=== PATIENT | male | born 1935 | race Caucasian/White ===

== ENCOUNTER 2017-07-05 15:48 | Observation (INO) | payer MEDICARE, OTHER ==
[2017-07-05] MEDS ORDERED: Ondansetron 4 MG/2 ML SDV IVPUSH ONE (15:59)
[2017-07-05] MEDS ORDERED: HYDROmorphone 1 MG/ML Syringe IVPUSH ONE ×2 (16:00→16:46)
[2017-07-05] MEDS ORDERED: Sodium Chloride 0.9% 1,000 ML IV SCH (16:00)
[2017-07-05] MEDS ORDERED: ceFAZolin 1 GM in Sodium Chloride 0.9% 50 ML IV ONE (16:02)
[2017-07-05] MEDS ORDERED: Diphtheria,Pertussis(Acell),Tetanus Vaccine 0.5 ML SDV IM ONE (16:09)
--- NOTE | 2017-07-05 17:08 | EDM.PDOC ---
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 He ambutated the rt 5th and 4th finger at the proximal PP joint. He also was having pain in his rt wrist and rt elebow. he has a triangular fracture of the rt ulna just above the wrist. Onset: Today Duration: Hour(s): Location: Reports: Upper Extremity, Right Associated Symptoms: Reports: No Other Symptoms Right Hand Pain Score (Numeric/FACES): 6 - Related Data Allergies Allergy/AdvReac Type Severity Reaction Status Date / Time Penicillins Allergy Rash Verified 07/05/17 16:21 Home Meds: Home Meds Amylase/Lipase/Protease [Lacey CLEMENTS 12,000 Units] 3 cap PO TIDAC 09/17/13 [History ] Famciclovir 500 mg PO Q7D 09/17/13 [History] Levothyroxine Sodium [Levoxyl] 112 mcg PO DAILY 09/17/13 [History] Tamsulosin HCl [Flomax] 0.4 mg PO DAILY 09/17/13 [History] *Vitamin E 30 units PO ASDIRECTED 07/05/17 [History] Fludrocortisone [Florinef] 1 tab PO DAILY 07/05/17 [History] Loperamide [Imodium] 2 tab PO DAILY 07/05/17 [History] diphenhydrAMINE HCl [Benadryl Allergy] 1 tab PO DAILY 07/05/17 [History] metFORMIN [Glucophage] 1 tab PO BID 07/05/17 [History] Past Medical History Gastrointestinal History: Reports: Pancreatitis Oncologic (Cancer) History: Reports: Prostate - Past Surgical History GI Surgical History: Reports: Other (See Below) Social & Family History - Family History Family Medical History: Noncontributory - Tobacco Use Smoking Status *Q: Never Smoker Years of Tobacco use: 25 Used Tobacco, but Quit: Yes Month Tobacco Last Used: 09/1981 Second Hand Smoke Exposure: No - Alcohol Use Days Per Week of Alcohol Use: 0 - Recreational Drug Use Recreational Drug Use: No Review of Systems - Review of Systems Review Of Systems: See Below Constitutional: Reports: No Symptoms Eyes: Reports: No Symptoms Ears: Reports: No Symptoms Nose: Reports: No Symptoms Mouth/Throat: Reports: No Symptoms Respiratory: Reports: No Symptoms Cardiovascular: Reports: No Symptoms GI/Abdominal: Reports: No Symptoms Musculoskeletal: Reports: Other ( Pain in the rt hand and wrist. He got it caught in the wood splitter. ) Skin: Reports: No Symptoms Neurological: Reports: No Symptoms Psychiatric: Reports: No Symptoms ED EXAM, GENERAL - Physical Exam Exam: See Below Free Text/Narrative:: pt is a alert pt who is very uncomfortable . he caught his rt hand in a woodsplitter. He has amputated his 5th and 4th fingers. he has a fracture of the 4th and 5th metacarpals, he has a fracture of the ulns. Exam Limited By: No Limitations General Appearance: Alert, Anxious, Severe Distress Ears: Normal TMs Nose: Normal Inspection Throat/Mouth: Normal Inspection Head: Atraumatic Neck: Normal Inspection Respiratory/Chest: No Respiratory Distress GI/Abdominal: Soft Rectal (Males) Exam: Deferred Back Exam: Normal Inspection Extremities: Other ( Pt has a amputation of the rt 4th and 5th fingers at the proximal pp joint. he has a fracture of the rt ulna with out displacement. He has a fracture of the distal metacarpals--4th and 5th. ) Neurological: Alert, Oriented Course - Vital Signs Last Recorded V/S: Last Vital Signs Temp 35.4 C 07/05/17 16:00 Pulse 65 07/05/17 17:18 Resp 10 L 07/05/17 17:18 BP 149/86 H 07/05/17 17:18 Pulse Ox 92 L 07/05/17 17:18 - Orders/Labs/Meds Orders: Active Orders 24 hr Category Date Time Status Vaccines to be Administered [RC] PER UNIT ROUTINE Care 07/05/17 16:10 Active Chest 1V Frontal [CR] Stat Exams 07/05/17 17:56 Ordered Elbow Min 3V Rt [CR] Stat Exams 07/05/17 17:04 Taken Hand Comp Min 3V Rt [CR] Stat Exams 07/05/17 16:04 Taken Wrist Comp Min 3V Rt [CR] Stat Exams 07/05/17 16:05 Taken Sodium Chloride 0.9% [Normal Saline] 1,000 ml Med 07/05/17 16:00 Active IV ASDIRECTED Medication Orders Sodium Chloride (Normal Saline) 1,000 mls @ 500 mls/hr IV ASDIRECTED CAMERON Last Admin: 07/05/17 16:12 Dose: 500 mls/hr Labs: Laboratory Tests 07/05/17 07/05/17 07/05/17 Range/Units 16:04 16:04 16:04 WBC 9.7 (4.5-11.0) K/uL RBC 4.15 L (4.30-5.90) M/uL Hgb 12.3 (12.0-15.0) g/dL Hct 37.0 L (40.0-54.0) % MCV 89 (80-98) fL MCH 30 (27-31) pg MCHC 33 (32-36) % Plt Count 350 (150-400) K/uL PT 10.7 (9.5-12.0) sec INR 1.00 (0.80-1.20) APTT 25.1 L (27.0-36.0) sec Sodium 140 (140-148) mmol/L Potassium 3.6 (3.6-5.2) mmol/L Chloride 104 (100-108) mmol/L Carbon Dioxide 27 (21-32) mmol/L Anion Gap 8.9 (5.0-14.0) mmol/L BUN 10 (7-18) mg/dL Creatinine 1.0 (0.8-1.3) mg/dL Est Cr Clr Drug Dosing TNP Estimated GFR (MDRD) > 60 (>60) Glucose 171 H (74-106) mg/dL Calcium 8.7 (8.5-10.1) mg/dL Total Bilirubin 1.0 (0.2-1.0) mg/dL AST 23 (15-37) U/L ALT 26 (12-78) U/L Alkaline Phosphatase 88 (46-116) U/L Total Protein 6.6 (6.4-8.2) g/dL Albumin 3.3 L (3.4-5.0) g/dL Globulin 3.3 (2.3-3.5) g/dL Albumin/Globulin Ratio 1.0 L (1.2-2.2) Meds: Medications Generic Name Dose Route Start Last Admin Trade Name Freq PRN Reason Stop Dose Admin Sodium Chloride 1,000 mls @ 500 mls/hr 07/05/17 16:00 07/05/17 16:12 Normal Saline IV 500 mls/hr ASDIRECTED CAMERON Administration Discontinued Medications Generic Name Dose Route Start Last Admin Trade Name Joe PRN Reason Stop Dose Admin Diphtheria/Tetanus/Acell Pertussis 0.5 ml 07/05/17 16:09 07/05/17 16:32 Adacel IM 07/05/17 16:10 0.5 ml .ONCE ONE Administration Hydromorphone HCl 1 mg 07/05/17 16:00 07/05/17 16:08 Dilaudid IVPUSH 07/05/17 16:01 1 mg ONETIME ONE Administration Hydromorphone HCl 1 mg 07/05/17 16:46 07/05/17 17:01 Dilaudid IVPUSH 07/05/17 16:47 1 mg ONETIME ONE Administration Cefazolin Sodium 1 gm/ Sodium 50 mls @ 100 mls/hr 07/05/17 16:02 07/05/17 16: 34 Chloride IV 07/05/17 16:31 100 mls/hr ONETIME ONE Administration Ondansetron HCl 4 mg 07/05/17 15:59 07/05/17 16:06 Zofran IVPUSH 07/05/17 16:00 4 mg ONETIME ONE Administration Departure - Departure Time of Disposition: 18:01 Disposition: Admitted As Inpatient 66 Condition: Fair Clinical Impression: Amputation finger, Fracture of distal ulna, Sprain of right elbow - Discharge Information Referrals: Beny Olmstead Sr, MD [Primary Care Provider] - Forms: ED Department Discharge Care Plan Goals: admit for pain control, transfer to [place] at 8 am tomorrow by private car. - My Orders Last 24 Hours: My Active Orders 07/05/17 16:04 Hand Comp Min 3V Rt [CR] Stat 07/05/17 16:05 Wrist Comp Min 3V Rt [CR] Stat 07/05/17 16:10 Vaccines to be Administered [RC] PER UNIT ROUTINE 07/05/17 17:04 Elbow Min 3V Rt [CR] Stat 07/05/17 17:56 Chest 1V Frontal [CR] Stat - Assessment/Plan Last 24 Hours: My Active Orders 07/05/17 16:04 Hand Comp Min 3V Rt [CR] Stat 10/14/17 16:05 Wrist Comp Min 3V Rt [CR] Stat 07/05/17 16:10 Vaccines to be Administered [RC] PER UNIT ROUTINE 07/05/17 17:04 Elbow Min 3V Rt [CR] Stat 07/05/17 17:56 Chest 1V Frontal [CR] Stat
[2017-07-05] MEDS ORDERED: Sodium Chloride 0.9% 10 ML Syringe FLUSH PRN (19:16)
--- NOTE | 2017-07-05 19:42 | PCM.HP ---
H&P History of Present Illness - General Date of Service: 07/05/17 Admit Problem/Dx: Admission Diagnosis/Problem Admission Diagnosis/Problem Fracture dislocation of right wrist Source of Information: Patient, EMS Notes Reviewed, Family - History of Present Illness Initial Comments - Free Text/Narative: Splitting wood and got his Right hand cought and lost 2 fingers and suffers fractures of the remaining fingers and wrist. Pain is being controlled by medicine and will be going to [place] tomorrow for surgery and treatment and casting of the right wrist. Onset of Symptoms: Reports: Sudden Symptom Onset Date: 07/05/17 Location: Reports: Upper Extremity, Right Associated Symptoms: Reports: Other (Loss of fingers and fracture of the right wrist.) Right Hand Pain Score (Numeric/FACES): 6 - Related Data Allergies/Adverse Reactions: Allergies Allergy/AdvReac Type Severity Reaction Status Date / Time Penicillins Allergy Rash Verified 07/05/17 16:21 Home Medications: Home Meds Amylase/Lipase/Protease [Lacey EASLEY 12,000 Units] 3 cap PO TIDAC 09/17/13 [History ] Famciclovir 500 mg PO Q7D 09/17/13 [History] Levothyroxine Sodium [Levoxyl] 112 mcg PO DAILY 09/17/13 [History] Tamsulosin HCl [Flomax] 0.4 mg PO DAILY 09/17/13 [History] *Vitamin E 30 units PO ASDIRECTED 07/05/17 [History] Fludrocortisone [Florinef] 1 tab PO DAILY 07/05/17 [History] Loperamide [Imodium] 2 tab PO DAILY 07/05/17 [History] diphenhydrAMINE HCl [Benadryl Allergy] 1 tab PO DAILY 07/05/17 [History] metFORMIN [Glucophage] 1 tab PO BID 07/05/17 [History] Past Medical History HEENT History: Reports: Hard of Hearing Gastrointestinal History: Reports: Pancreatitis Other Gastrointestinal History: 4 hernias Genitourinary History: Reports: Other (See Below) Other Genitourinary History: 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 Musculoskeletal History: Reports: Back Pain, Chronic, Fracture Neurological History: Reports: Concussion, Head Trauma Psychiatric History: Reports: Depression Endocrine/Metabolic History: Reports: Hypothyroidism Hematologic History: Reports: Blood Transfusion(s) Immunologic History: Reports: Other (See Below) Other Immunologic History: pemphagus, herpes simplex of mouth Oncologic (Cancer) History: Reports: Prostate - Past Surgical History GI Surgical History: Reports: Other (See Below) Social & Family History - Family History Family Medical History: Noncontributory - Tobacco Use Smoking Status *Q: Never Smoker Years of Tobacco use: 25 Used Tobacco, but Quit: Yes Month Tobacco Last Used: 09/1981 Second Hand Smoke Exposure: No - Alcohol Use Days Per Week of Alcohol Use: 0 - Recreational Drug Use Recreational Drug Use: No H&P Review of Systems - Review of Systems: Review Of Systems: See Below General: Reports: No Symptoms HEENT: Reports: No Symptoms Pulmonary: Reports: No Symptoms Cardiovascular: Reports: No Symptoms Gastrointestinal: Reports: No Symptoms Genitourinary: Reports: No Symptoms Musculoskeletal: Reports: No Symptoms Skin: Reports: No Symptoms Psychiatric: Reports: No Symptoms Neurological: Reports: No Symptoms Immunologic: Reports: No Symptoms Exam - Exam Exam: See Below - Vital Signs Vital Signs: Last Vital Signs Temp 95.7 F 07/05/17 16:00 Pulse 74 07/05/17 18:05 Resp 12 07/05/17 18:05 BP 179/30 H 07/05/17 18:05 Pulse Ox 97 07/05/17 18:05 Weight: 140 lb - Exam General: Alert, Oriented, 4 HEENT: PERRLA, Hearing Intact, Mucosa Moist & [place], Nares Patent, Normal Nasal Septum, Posterior Pharynx Clear, Conjunctiva Clear, EOMI, EACs Clear, TMs Clear Neck: Supple, Trachea Midline, 2 Lungs: Clear to Auscultation, Normal Respiratory Effort Cardiovascular: Regular Rate, Regular Rhythm GI/Abdominal Exam: Normal Bowel Sounds, Soft, Non-Tender, No Organomegaly, No Distention, No Abnormal Bruit, No Mass, Pelvis Stable Extremities: Other (2 fingers ampuatation and fractures of hand and wrist.) Skin: Warm, Dry, Intact DTR: 4+: Achilles (R) Psychiatric: Alert, Normal Affect - Patient Data Lab Results Last 24 hrs: Laboratory Results - last 24 hr 07/05/17 07/05/17 07/05/17 Range/Units 16:04 16:04 16:04 WBC 9.7 (4.5-11.0) K/uL RBC 4.15 L (4.30-5.90) M/uL Hgb 12.3 (12.0-15.0) g/dL Hct 37.0 L (40.0-54.0) % MCV 89 (80-98) fL MCH 30 (27-31) pg MCHC 33 (32-36) % Plt Count 350 (150-400) K/uL PT 10.7 (9.5-12.0) sec INR 1.00 (0.80-1.20) APTT 25.1 L (27.0-36.0) sec Sodium 140 (140-148) mmol/L Potassium 3.6 (3.6-5.2) mmol/L Chloride 104 (100-108) mmol/L Carbon Dioxide 27 (21-32) mmol/L Anion Gap 8.9 (5.0-14.0) mmol/L BUN 10 (7-18) mg/dL Creatinine 1.0 (0.8-1.3) mg/dL Est Cr Clr Drug Dosing TNP Estimated GFR (MDRD) > 60 (>60) Glucose 171 H (74-106) mg/dL Calcium 8.7 (8.5-10.1) mg/dL Total Bilirubin 1.0 (0.2-1.0) mg/dL AST 23 (15-37) U/L ALT 26 (12-78) U/L Alkaline Phosphatase 88 (46-116) U/L Total Protein 6.6 (6.4-8.2) g/dL Albumin 3.3 L (3.4-5.0) g/dL Globulin 3.3 (2.3-3.5) g/dL Albumin/Globulin Ratio 1.0 L (1.2-2.2) Urine Color Urine Appearance Urine pH (4.5-8.0) Ur Specific [place] (1.008-1.030) Urine Protein (NEGATIVE) mg/dL Urine Glucose (UA) (NEGATIVE) mg/dL Urine Ketones (NEGATIVE) mg/dL Urine Occult Blood (NEGATIVE) Urine Nitrite (NEGAITVE) Urine Bilirubin (NEGATIVE) Urine Urobilinogen (NORMAL) mg/dL Ur Leukocyte Esterase (NEGATIVE) Urine RBC (0-5) Urine WBC (0-5) Ur Epithelial Cells Amorphous Sediment Urine Bacteria Urine Mucus /14/17 Range/Units 18:12 WBC (4.5-11.0) K/uL RBC (4.30-5.90) M/uL Hgb (12.0-15.0) g/dL Hct (40.0-54.0) % MCV (80-98) fL MCH (27-31) pg MCHC (32-36) % Plt Count (150-400) K/uL PT (9.5-12.0) sec INR (0.80-1.20) APTT (27.0-36.0) sec Sodium (140-148) mmol/L Potassium (3.6-5.2) mmol/L Chloride (100-108) mmol/L Carbon Dioxide (21-32) mmol/L Anion Gap (5.0-14.0) mmol/L BUN (7-18) mg/dL Creatinine (0.8-1.3) mg/dL Est Cr Clr Drug Dosing Estimated GFR (MDRD) (>60) Glucose (74-106) mg/dL Calcium (8.5-10.1) mg/dL Total Bilirubin (0.2-1.0) mg/dL AST (15-37) U/L ALT (12-78) U/L Alkaline Phosphatase (46-116) U/L Total Protein (6.4-8.2) g/dL Albumin (3.4-5.0) g/dL Globulin (2.3-3.5) g/dL Albumin/Globulin Ratio (1.2-2.2) Urine Color Yellow Urine Appearance Clear Urine pH 6.0 (4.5-8.0) Ur Specific [place] 1.015 (1.008-1.030) Urine Protein Negative (NEGATIVE) mg/dL Urine Glucose (UA) Normal (NEGATIVE) mg/dL Urine Ketones Negative (NEGATIVE) mg/dL Urine Occult Blood Negative (NEGATIVE) Urine Nitrite Negative (NEGAITVE) Urine Bilirubin Negative (NEGATIVE) Urine Urobilinogen Normal (NORMAL) mg/dL Ur Leukocyte Esterase Negative (NEGATIVE) Urine RBC Not seen (0-5) Urine WBC 0-5 (0-5) Ur Epithelial Cells Rare Amorphous Sediment Not seen Urine Bacteria Rare Urine Mucus Few Result Diagrams: 07/05/17 16:04 07/05/17 16:04 *Q Meaningful Use (ADM) - VTE *Q VTE Criteria *Q: - Stroke *Q Stroke Criteria *Q: - AMI *Q AMI Criteria *Q: Problem List Initiated/Reviewed/Updated: Yes Orders Last 24hrs: Active Orders 24 hr Category Date Time Status Patient Status [ADT] Routine ADT 07/05/17 19:16 Ordered Bedrest Bathroom Privileges [RC] ASDIRECTED Care 07/05/17 19:16 Ordered EKG Documentation Completion [RC] ASDIRECTED Care 07/05/17 18:17 Active Height and Weight [RC] UPON Care 07/05/17 19:16 Ordered Intake and Output [RC] QSHIFT Care 07/05/17 19:22 Ordered Oxygen Therapy [RC] PRN Care 07/05/17 19:16 Ordered Up to Chair [RC] QID Care 07/05/17 19:16 Ordered VTE/DVT Education [RC] Per Unit Routine Care 07/05/17 19:16 Ordered Vaccines to be Administered [RC] PER UNIT ROUTINE Care 07/05/17 16:10 Active Vital Signs [RC] Q4H Care 07/05/17 19:16 Ordered Nothing per Oral After Midnight Diet [DIET] Diet 07/06/17 Breakfast Ordered Chest 1V Frontal [CR] Stat Exams 07/05/17 17:56 Taken Elbow Min 3V Rt [CR] Stat Exams 07/05/17 17:04 Taken Hand Comp Min 3V Rt [CR] Stat Exams 07/05/17 16:04 Taken Wrist Comp Min 3V Rt [CR] Stat Exams 07/05/17 16:05 Taken Acetaminophen/Codeine [Tylenol with Codeine No.3 300MG/ Med 07/05/17 19:16 Ordered 30MG] 2 tab PO Q4H PRN Amylase/Lipase/Protease [Lacey EASLEY 12,000 Units] Med 07/06/17 07:30 Ordered 3 cap PO TIDAC Levothyroxine Med 07/06/17 09:00 Ordered 112 mcg PO DAILY Loperamide [Imodium] Med 07/06/17 09:00 Ordered 2 tab PO DAILY Sodium Chloride 0.9% [Normal Saline] 1,000 ml Med 07/05/17 16:00 Active IV ASDIRECTED Sodium Chloride 0.9% [Saline Flush] Med 07/05/17 19:16 Ordered 10 ml FLUSH ASDIRECTED PRN Tamsulosin [Flomax] Med 07/06/17 09:00 Ordered 0.4 mg PO DAILY ceFAZolin [Ancef] 1 gm Med 07/05/17 22:00 Ordered Premix Bag 1 bag IV Q6HR diphenhydrAMINE HCl [Benadryl Allergy] Med 07/06/17 09:00 Ordered 1 tab PO DAILY metFORMIN [Glucophage] Med 07/05/17 21:00 Ordered 1 tab PO BID Saline Lock Insert [OM.PC] Routine Oth 07/05/17 19:16 Ordered Resuscitation Status Routine Resus Stat 07/05/17 19:16 Ordered EKG 12 Lead [EK] Routine Ther 07/05/17 18:17 Ordered Medication Orders Acetaminophen/Codeine Phosphate (Tylenol With Codeine No.3 300mg/30mg) 2 tab PO Q4H PRN PRN Reason: Pain Lipase/Protease/Amylase (Lacey Easley 12,000 Units) 3 cap PO TIDAC CAM[facility] Sodium Chloride (Normal Saline) 1,000 mls @ 500 mls/hr IV ASDIRECTED CAMERON Last Admin: 07/05/17 16:12 Dose: 500 mls/hr Levothyroxine Sodium (Levothyroxine) 112 mcg PO DAILY CAM[facility] Loperamide HCl (Imodium) mg PO DAILY CAM[facility]ON Metformin HCl (Glucophage) mg PO BID CAMERON Non-Formulary Medication (Diphenhydramine Hcl [Benadryl Allergy]) 1 tab PO DAILY CAMERON Sodium Chloride (Saline Flush) 10 ml FLUSH ASDIRECTED PRN PRN Reason: Keep Vein Open Tamsulosin HCl (Flomax) 0.4 mg PO DAILY CAMERON Assessment/Plan Comment:: Assessment/ Plan: #1. Injury to right hand and wrist. Finger amputations and fracture of the right wrist. Will be going to for surgery in the AM. #2. 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 #3. DM II on oral meds. #4. Hypothyroid: On meds. #5. History of Chronic pancreas with S/P Whipples procedure.
[2017-07-05] MEDS: Acetaminophen/Codeine 300-30 MG Tab PO PRN (20:48)
[2017-07-05] MEDS ORDERED: metFORMIN 500 MG Tab PO SCH (21:00)
[2017-07-05] MEDS ORDERED: ceFAZolin 1 GM Vial ONE (21:26)
[2017-07-05] MEDS ORDERED: Sodium Chloride 0.9% 50 ML ONE (21:57)
[2017-07-05] MEDS: ceFAZolin 1 GM in Premix Bag 1 BAG IV SCH (22:11)
[2017-07-06] MEDS: Acetaminophen/Codeine 300-30 MG Tab PO PRN ×2 (00:19→04:15)
[2017-07-06] MEDS ORDERED: Sodium Chloride 0.9% 50 ML ONE (04:10)
[2017-07-06] MEDS ORDERED: ceFAZolin 1 GM Vial ONE (04:10)
[2017-07-06] MEDS: ceFAZolin 1 GM in Premix Bag 1 BAG IV SCH (04:20)
[2017-07-06] MEDS ORDERED: Acetaminophen/HYDROcodone 325-5 MG Tab PO PRN (05:16)
[2017-07-06 07:19] VITALS: BP 127/106
[2017-07-06] MEDS ORDERED: Amylase/Lipase/Protease 12,000 Unit Cap.CR PO SCH (07:30)
[2017-07-06] MEDS ORDERED: Levothyroxine 112 MCG Tab PO SCH (07:30)
[2017-07-06] MEDS ORDERED: metFORMIN 500 MG Tab PO SCH (08:00)
[2017-07-06] MEDS ORDERED: Loperamide 2 MG Cap PO SCH (09:00)
[2017-07-06] MEDS ORDERED: Tamsulosin 0.4 MG Cap.ER PO SCH (09:00)
[2017-07-06] MEDS ORDERED: diphenhydrAMINE 25 MG Cap PO SCH (09:00)
--- NOTE | 2017-07-06 15:13 | PCM.PN ---
- General Info Date of Service: 07/06/17 Functional Status: Reports: Pain Controlled - Review of Systems General: Reports: Weakness HEENT: Reports: No Symptoms Pulmonary: Reports: No Symptoms Cardiovascular: Reports: No Symptoms Gastrointestinal: Reports: No Symptoms Genitourinary: Reports: No Symptoms Musculoskeletal: Reports: Hand Pain Skin: Reports: No Symptoms Neurological: Reports: No Symptoms Psychiatric: Reports: No Symptoms - Patient Data Vitals - Most Recent: Last Vital Signs Temp 97.9 F 07/06/17 07:13 Pulse 73 07/06/17 07:13 Resp 20 07/06/17 07:13 BP 127/106 H 07/06/17 07:13 Pulse Ox 95 07/06/17 07:13 Weight - Most Recent: 156 lb I&O - Last 24 Hours: Intake & Output 07/06/17 07/06/17 07/06/17 06:59 14:59 22:59 Intake Total 350 Output Total 950 Balance -600 Med Orders - Current: Current Medications Discontinued Medications Acetaminophen/Codeine Phosphate (Tylenol With Codeine No.3 300mg/30mg) 2 tab PO Q4H PRN PRN Reason: Pain Last Admin: 07/06/17 04:15 Dose: 2 tab Hydrocodone Bitart/Acetaminophen ([place] 325-5 Mg) 1 - 2 tab PO Q4H PRN PRN Reason: Pain Last Admin: 07/06/17 05:27 Dose: 1 tab Lipase/Protease/Amylase ([place] Dr 12,000 Units) 3 cap PO TIDAC CAMERON Cefazolin Sodium (Ancef) Confirm Administered Dose 1 gm .ROUTE .STK-MED ONE Stop: 07/05/17 21:27 Last Admin: 07/05/17 22:06 Dose: Not Given Cefazolin Sodium (Ancef) Confirm Administered Dose 1 gm .ROUTE .STK-MED ONE Stop: 07/06/17 04:11 Last Admin: 07/06/17 04:19 Dose: Not Given Diphenhydramine HCl (Benadryl) 25 mg PO DAILY [facility] Diphtheria/Tetanus/Acell Pertussis (Adacel) 0.5 ml IM .ONCE ONE Stop: 07/05/17 16:10 Last Admin: 07/05/17 16:32 Dose: 0.5 ml Hydromorphone HCl (Dilaudid) 1 mg IVPUSH ONETIME ONE Stop: 07/05/17 16:01 Last Admin: 07/05/17 16:08 Dose: 1 mg Hydromorphone HCl (Dilaudid) 1 mg IVPUSH ONETIME ONE Stop: 07/05/17 16:47 Last Admin: 07/05/17 17:01 Dose: 1 mg Sodium Chloride (Normal Saline) 1,000 mls @ 500 mls/hr IV ASDIRECTED [facility] Last Admin: 07/05/17 16:12 Dose: 500 mls/hr Cefazolin Sodium 1 gm/ Sodium (Chloride) 50 mls @ 100 mls/hr IV ONETIME ONE Stop: 07/05/17 16:31 Last Admin: 07/05/17 16:34 Dose: 100 mls/hr Cefazolin Sodium/Dextrose 1 gm (/ Premix) 50 mls @ 100 mls/hr IV Q6HR [facility] Last Admin: 07/06/17 04:20 Dose: 100 mls/hr Sodium Chloride (Normal Saline) Confirm Administered Dose 50 mls @ as directed .ROUTE .STK-[facility] ONE Stop: 07/05/17 21:58 Last Admin: 07/05/17 22:10 Dose: Not Given Sodium Chloride (Normal Saline) Confirm Administered Dose 50 mls @ as directed .ROUTE .STK-MED ONE Stop: 07/06/17 04:11 Last Admin: 07/06/17 04:19 Dose: Not Given Levothyroxine Sodium (Levothyroxine) 112 mcg PO ACBREAKFAST [facility] Loperamide HCl (Imodium) 4 mg PO DAILY [facility] Metformin HCl (Glucophage) 500 mg PO BID [facility] Last Admin: 07/05/17 20:49 Dose: 500 mg Metformin HCl (Glucophage) 500 mg PO BIDMEALS [facility] Ondansetron HCl (Zofran) 4 mg IVPUSH ONETIME ONE Stop: 07/05/17 16:00 Last Admin: 07/05/17 16:06 Dose: 4 mg Sodium Chloride (Saline Flush) 10 ml FLUSH ASDIRECTED PRN PRN Reason: Keep Vein Open Tamsulosin HCl (Flomax) 0.4 mg PO DAILY [facility] - Exam General: Alert, Oriented HEENT: Pupils Equal, Pupils Reactive, EOMI, Mucous Membr. Moist/[place] Neck: Supple Lungs: Clear to Auscultation, Normal Respiratory Effort Cardiovascular: Regular Rate, Regular Rhythm GI/Abdominal Exam: Normal Bowel Sounds, Soft, Non-Tender, No Organomegaly, No Distention, No Abnormal Bruit, No Mass, Pelvis Stable Extremities: Other (Right hand pain with amputation and fracture of the arm) - Problem List Review Problem List Initiated/Reviewed/Updated: Yes - My Orders Last 24 Hours: My Active Orders 07/05/17 21:20 Ready for Discharge [RC] PER UNIT ROUTINE - Plan Plan:: Assessment/ Plan: #1. Injury to right hand and wrist. Finger amputations and fracture of the right wrist. Will be going to for surgery in the AM. #2. 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 #3. DM II on oral meds. #4. Hypothyroid: On meds. #5. History of Chronic pancreas with S/P Whipples procedure.
--- NOTE | 2017-07-06 15:18 | PCM.DCSUM1 ---
Discharge Summary - Hospital Course Brief History: trauma to right hand and arm yesterday to have surgery today at . He was using a log splitter and fractures his right hand and arm and amputated 2 fingers. - Discharge Data Discharge Date: 07/06/17 Discharge Disposition: DC/Tfer to Acute Hospital 02 Condition: Good - Patient Summary/Data Hospital Course: admitted for pain control and observation prior to . He is going to for surgery and will be going today. Planed surgery at 9AM. He is medically stable at the time of discharge. - Patient Instructions Diet: NPO Activity: As Tolerated Driving: Do Not Drive - Discharge Plan Home Medications: Home Meds Amylase/Lipase/Protease [Lacey CLEMENTS 12,000 Units] 3 cap PO TIDAC 09/17/13 [History ] Famciclovir 500 mg PO Q7D 09/17/13 [History] Levothyroxine Sodium [Levoxyl] 112 mcg PO DAILY 09/17/13 [History] Tamsulosin HCl [Flomax] 0.4 mg PO DAILY 09/17/13 [History] *Vitamin E 30 units PO ASDIRECTED 07/05/17 [History] Fludrocortisone [Florinef] 1 tab PO DAILY 07/05/17 [History] Loperamide [Imodium] 2 tab PO DAILY 07/05/17 [History] diphenhydrAMINE HCl [Benadryl Allergy] 1 tab PO DAILY 07/05/17 [History] metFORMIN [Glucophage] 1 tab PO BID 07/05/17 [History] Forms: ED Department Discharge Referrals: Beny Olmstead Sr, MD [Primary Care Provider] - - Discharge Summary/Plan Comment DC Time >30 min.: No Discharge Summary/Plan Comment: Assessment/ Plan: #1. Injury to right hand and wrist. Finger amputations and fracture of the right wrist. Will be going to for surgery this morning. #2. 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 #3. DM II on oral meds. #4. Hypothyroid: On meds. #5. History of Chronic pancreas with S/P Whipples procedure. - Patient Data Vitals - Most Recent: Last Vital Signs Temp 97.9 F 07/06/17 07:13 Pulse 73 07/06/17 07:13 Resp 20 07/06/17 07:13 BP 127/106 H 07/06/17 07:13 Pulse Ox 95 07/06/17 07:13 Weight - Most Recent: 156 lb I&O - Last 24 hours: Intake & Output 07/06/17 07/06/17 07/06/17 06:59 14:59 22:59 Intake Total 350 Output Total 950 Balance -600 Med Orders - Current: Current Medications Discontinued Medications Acetaminophen/Codeine Phosphate (Tylenol With Codeine No.3 300mg/30mg) 2 tab PO Q4H PRN PRN Reason: Pain Last Admin: 07/06/17 04:15 Dose: 2 tab Hydrocodone Bitart/Acetaminophen (Beyer 325-5 Mg) 1 - 2 tab PO Q4H PRN PRN Reason: Pain Last Admin: 07/06/17 05:27 Dose: 1 tab Lipase/Protease/Amylase (Creon Dr 12,000 Units) 3 cap PO TIDAC CAM[facility] Cefazolin Sodium (Ancef) Confirm Administered Dose 1 gm .ROUTE .STK-MED ONE Stop: 07/05/17 21:27 Last Admin: 07/05/17 22:06 Dose: Not Given Cefazolin Sodium (Ancef) Confirm Administered Dose 1 gm .ROUTE .STK-MED ONE Stop: 07/06/17 04:11 Last Admin: 07/06/17 04:19 Dose: Not Given Diphenhydramine HCl (Benadryl) 25 mg PO DAILY [facility] Diphtheria/Tetanus/Acell Pertussis (Adacel) 0.5 ml IM .ONCE ONE Stop: 07/05/17 16:10 Last Admin: 07/05/17 16:32 Dose: 0.5 ml Hydromorphone HCl (Dilaudid) 1 mg IVPUSH ONETIME ONE Stop: 07/05/17 16:01 Last Admin: 07/05/17 16:08 Dose: 1 mg Hydromorphone HCl (Dilaudid) 1 mg IVPUSH ONETIME ONE Stop: 07/05/17 16:47 Last Admin: 07/05/17 17:01 Dose: 1 mg Sodium Chloride (Normal Saline) 1,000 mls @ 500 mls/hr IV ASDIRECTED CAMERON Last Admin: 07/05/17 16:12 Dose: 500 mls/hr Cefazolin Sodium 1 gm/ Sodium (Chloride) 50 mls @ 100 mls/hr IV ONETIME ONE Stop: 07/05/17 16:31 Last Admin: 07/05/17 16:34 Dose: 100 mls/hr Cefazolin Sodium/Dextrose 1 gm (/ Premix) 50 mls @ 100 mls/hr IV Q6HR CAMERON Last Admin: 07/06/17 04:20 Dose: 100 mls/hr Sodium Chloride (Normal Saline) Confirm Administered Dose 50 mls @ as directed .ROUTE .STK-MED ONE Stop: 07/05/17 21:58 Last Admin: 07/05/17 22:10 Dose: Not Given Sodium Chloride (Normal Saline) Confirm Administered Dose 50 mls @ as directed .ROUTE .STK-MED ONE Stop: 07/06/17 04:11 Last Admin: 07/06/17 04:19 Dose: Not Given Levothyroxine Sodium (Levothyroxine) 112 mcg PO ACBREAKFAST [facility] Loperamide HCl (Imodium) 4 mg PO DAILY [facility] Metformin HCl (Glucophage) 500 mg PO BID [facility] Last Admin: 07/05/17 20:49 Dose: 500 mg Metformin HCl (Glucophage) 500 mg PO BIDMEALS [facility] Ondansetron HCl (Zofran) 4 mg IVPUSH ONETIME ONE Stop: 07/05/17 16:00 Last Admin: 07/05/17 16:06 Dose: 4 mg Sodium Chloride (Saline Flush) 10 ml FLUSH ASDIRECTED PRN PRN Reason: Keep Vein Open Tamsulosin HCl (Flomax) 0.4 mg PO DAILY CAMERON *Q Meaningful Use (DIS) - VTE *Q VTE Criteria *Q: - Stroke *Q Stroke Criteria *Q: - AMI *Q AMI Criteria *Q:
--- NOTE | 2017-07-07 10:01 | CR ---
Hand Comp Min 3V Rt, Wrist Comp Min 3V Rt INDICATION: amputation of 5th and 4th fingers. FINDINGS: Traumatic amputation of the fourth and fifth digits at the PIP joint. Acute, mildly displac ed spiral fracture of the distal third of the right ulnar diaphysis.
--- NOTE | 2017-07-07 10:14 | CR ---
Elbow Min 3V Rt INDICATION: pain in rt elbow FINDINGS: Enthesophyte proximal ulna. Right elbow otherwise negative.
--- NOTE | 2017-07-07 10:15 | CR ---
Chest 1V Frontal INDICATION: sob FINDINGS: Comparison 04/30/2016. New minimal nodular interstitial changes in the lung bases are nonspec ific. No focal consolidation. Hypertrophic changes thoracic spine. Chest otherwise negative. Recommend follow-up chest x-ray in 4-6 weeks.
== END 2017-07-06 07:44 ==
LOC: JP.ED 15:48 → JP.MS 19:16
PROVIDERS: ADMIT Internal Medicine; ATTEND Internal Medicine
DX: S62.336A Displaced fracture of neck of fifth metacarpal bone, right hand, initial encounter for closed fracture (principal); S62.334A Displaced fracture of neck of fourth metacarpal bone, right hand, initial encounter for closed fracture; Z88.0 Allergy status to penicillin; Z79.84 Long term (current) use of oral hypoglycemic drugs; Z79.899 Other long term (current) drug therapy; Z89.021 Acquired absence of right finger(s); W23.0XXA Caught, crushed, jammed, or pinched between moving objects, initial encounter
CPT/HCPCS: 36415; 71010; 73080; 73110; 73130; 80053; 81001; 85027; 85610; 85730; 90471; 90715; 93005; 93010; 96361; 96365; 96366; 96375; 96376; 99285; A4217; A9270; G0378; J0690; J1170; J2405; J7040; J7050

== ENCOUNTER 2017-07-14 03:14 | Emergency (ER) | payer MEDICARE, OTHER ==
[2017-07-14 03:35] VITALS: BP 98/76
--- NOTE | 2017-07-14 04:18 | EDM.PDOC ---
ED HPI GENERAL MEDICAL PROBLEM - General Chief Complaint: Upper Extremity Injury/Pain Stated Complaint: R ARM PAIN Time Seen by Provider: 07/14/17 04:07 Source of Information: Reports: Patient, RN Notes Reviewed History Limitations: Reports: No Limitations - History of Present Illness INITIAL COMMENTS - FREE TEXT/NARRATIVE: 81-year-old gentleman presents emergency department day complaint of pain underneath his cast he's had the cast on for couple days he feels it's it's tight and swollen given him difficulty he is using Tylenol No. 3 for pain control Right Arm Pain Score (Numeric/FACES): 10 - Related Data Allergies Allergy/AdvReac Type Severity Reaction Status Date / Time Penicillins Allergy Rash Verified 07/14/17 03:36 Home Meds: Home Meds Amylase/Lipase/Protease [Lacey CLEMENTS 12,000 Units] 3 cap PO TIDAC 09/17/13 [History ] Famciclovir 500 mg PO Q7D 09/17/13 [History] Levothyroxine Sodium [Levoxyl] 112 mcg PO DAILY 09/17/13 [History] Tamsulosin HCl [Flomax] 0.4 mg PO DAILY 09/17/13 [History] *Vitamin E 30 units PO ASDIRECTED 07/05/17 [History] Fludrocortisone [Florinef] 1 tab PO DAILY 07/05/17 [History] Loperamide [Imodium] 2 tab PO DAILY 07/05/17 [History] metFORMIN [Glucophage] 1 tab PO BID 07/05/17 [History] Acetaminophen/Codeine [Tylenol with Codeine No.3 300MG/30MG] 300 mg PO Q4HR PRN 07/14/17 [History] Past Medical History HEENT History: Reports: Hard of Hearing Gastrointestinal History: Reports: Pancreatitis Other Gastrointestinal History: 4 hernias Genitourinary History: Reports: Other (See Below) Other Genitourinary History: 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 Musculoskeletal History: Reports: Back Pain, Chronic, Fracture Neurological History: Reports: Concussion, Head Trauma Psychiatric History: Reports: Depression Endocrine/Metabolic History: Reports: Diabetes, Type II, Hypothyroidism Hematologic History: Reports: Blood Transfusion(s) Immunologic History: Reports: Other (See Below) Other Immunologic History: pemphagus, herpes simplex of mouth Oncologic (Cancer) History: Reports: Prostate - Infectious Disease History Infectious Disease History: Reports: C-Difficile - Past Surgical History HEENT Surgical History: Reports: None GI Surgical History: Reports: Other (See Below) Male Surgical History: Reports: None Endocrine Surgical History: Reports: None Neurological Surgical History: Reports: None Musculoskeletal Surgical History: Reports: None Oncologic Surgical History: Reports: None Social & Family History - Family History Family Medical History: Noncontributory - Tobacco Use Smoking Status *Q: Former Smoker Years of Tobacco use: 30 Used Tobacco, but Quit: Yes Month Tobacco Last Used: january Second Hand Smoke Exposure: No - Caffeine Use Caffeine Use: Reports: Coffee - Alcohol Use Days Per Week of Alcohol Use: 0 - Recreational Drug Use Recreational Drug Use: No Review of Systems - Review of Systems Review Of Systems: See Below Constitutional: Reports: No Symptoms Respiratory: Reports: No Symptoms Cardiovascular: Reports: No Symptoms Musculoskeletal: Reports: Hand Pain Skin: Reports: No Symptoms Neurological: Reports: No Symptoms ED EXAM, GENERAL - Physical Exam Exam: See Below Free Text/Narrative:: Examination of the cast he has full range of motion of his digits color is within normal limits Refill is under 2 seconds I don't appreciate any edema I am able to slip my finger into the anterior aspect of the cast without difficulty on the posterior cast also above the elbow I can slip my finger into the cast anterior and posteriorly without difficulty I don't appreciate any edema Exam Limited By: No Limitations General Appearance: Alert, WD/WN, No Apparent Distress Course - Vital Signs Last Recorded V/S: Last Vital Signs Temp 97.9 F 07/14/17 03:32 Pulse 73 07/14/17 03:32 Resp 16 07/14/17 03:32 BP 98/76 07/14/17 03:32 Pulse Ox 98 07/14/17 03:32 Departure - Departure Time of Disposition: 04:17 Disposition: Home, Self-Care 01 Condition: Good Clinical Impression: Postoperative pain - Discharge Information Referrals: Beny Olmstead Sr, MD [Primary Care Provider] - Additional Instructions: Use Percocet as needed for pain control, please call your surgeon when the clinic opens of morning for further instructions and reevaluation - Assessment/Plan Plan: Assessment Acuity = acute Site and laterality = ongoing pain and discomfort with cast Etiology = probable inadequate pain control Manifestations = none Location of injury = Home Lab values = none Plan Will change pain control from Tylenol No. 3 to Percocet have him call his surgeon in a couple hours for further instructions, Percocet 5/325 one tab by mouth 3 times a day when necessary total #10 Patient was in agreement with the plan all questions were answered, they were instructed to return to the emergency department or call for worsening symptoms. This note was dictated using [employer] voice recognition software please call with any questions.
== END 2017-07-14 04:26 | disposition home or self-care (01) ==
LOC: JP.ED 03:14
DX: G89.18 Other acute postprocedural pain (principal); M79.601 Pain in right arm; Z79.899 Other long term (current) drug therapy; Z87.891 Personal history of nicotine dependence; Z88.0 Allergy status to penicillin
CPT/HCPCS: 99283

== ENCOUNTER 2020-04-07 15:23 | Emergency (ER) | payer MEDICARE, OTHER ==
[2020-04-07] MEDS ORDERED: Ondansetron 4 MG/2 ML SDV IVPUSH ONE ×2 (16:00→20:17)
[2020-04-07] MEDS ORDERED: Sodium Chloride 0.9% 10 ML Syringe FLUSH PRN (16:00)
[2020-04-07] MEDS ORDERED: Sodium Chloride 0.9% 1,000 ML IV SCH ×2 (16:00→20:15)
--- NOTE | 2020-04-07 16:05 | EDM.PDOC ---
ED HPI GENERAL MEDICAL PROBLEM - General Chief Complaint: General Stated Complaint: CHILL,VOMITING Time Seen by Provider: 04/07/20 15:50 Source of Information: Reports: Patient, Family, RN Notes Reviewed History Limitations: Reports: No Limitations - History of Present Illness INITIAL COMMENTS - FREE TEXT/NARRATIVE: Reji presents today for complaints of feeling weak, generalized body aches, diarrhea that has been more frequent then his usual since his Whipple procedure, nausea and emesis x 1 since this am. He states he has been busy trying to get his large garden weeded. He also states he has been taking doxycycline for tick bite for several days and been outside in the sun all week. He denies any recent injuries, fever, chills, headaches, chest pain, SOB, palpitations or other concerns. Patient is DNI, would like CPR Patient cannot read in any languages. 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 - Related Data Allergies Allergy/AdvReac Type Severity Reaction Status Date / Time Penicillins Allergy Rash Verified 04/07/20 15:36 Home Meds: Home Meds Amylase/Lipase/Protease [Lacey CLEMENTS 12,000 Units] 3 cap PO TIDAC 09/17/13 [History] Famciclovir 500 mg PO Q7D 09/17/13 [History] Levothyroxine Sodium [Levoxyl] 112 mcg PO DAILY 09/17/13 [History] Tamsulosin HCl [Flomax] 0.4 mg PO DAILY 09/17/13 [History] Diphenoxylate HCl/Atropine [Diphenoxylate-Atrop 2.5-0.025] 1 tab PO BID 06/26/18 [History] Linagliptin [Tradjenta] 5 mg PO DAILY 04/07/20 [History] Past Medical History HEENT History: Reports: Hard of Hearing Gastrointestinal History: Reports: Pancreatitis Other Gastrointestinal History: 4 hernias Genitourinary History: Reports: Other (See Below) Other Genitourinary History: 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 Musculoskeletal History: Reports: Back Pain, Chronic, Fracture Neurological History: Reports: Concussion, Head Trauma Psychiatric History: Reports: Depression Endocrine/Metabolic History: Reports: Diabetes, Type II, Hypothyroidism Hematologic History: Reports: Blood Transfusion(s) Immunologic History: Reports: Other (See Below) Other Immunologic History: pemphagus, herpes simplex of mouth Oncologic (Cancer) History: Reports: Prostate - Infectious Disease History Infectious Disease History: Reports: C-Difficile - Past Surgical History HEENT Surgical History: Reports: None GI Surgical History: Reports: Other (See Below) Other GI Surgeries/Procedures: whipple procedure Male Surgical History: Reports: None Endocrine Surgical History: Reports: None Neurological Surgical History: Reports: None Musculoskeletal Surgical History: Reports: None, Other (See Below) Other Musculoskeletal Surgeries/Procedures:: 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 Oncologic Surgical History: Reports: None Social & Family History - Family History Family Medical History: Noncontributory - Tobacco Use Smoking Status *Q: Never Smoker - Caffeine Use Caffeine Use: Reports: Coffee ED ROS GENERAL - Review of Systems Review Of Systems: See Below Constitutional: Reports: Malaise, Weakness. Denies: Fever, Chills HEENT: Reports: No Symptoms Respiratory: Reports: No Symptoms Cardiovascular: Reports: No Symptoms Endocrine: Reports: No Symptoms GI/Abdominal: Reports: Diarrhea, Decreased Appetite, Nausea, Vomiting. Denies: Abdominal Pain, Black Stool, Bloody Stool, Constipation, Difficulty Swallowing, Distension, Hematemesis, Hematochezia : Reports: No Symptoms Musculoskeletal: Reports: Other (generalized aches and pains) Skin: Reports: No Symptoms Neurological: Reports: No Symptoms Psychiatric: Reports: No Symptoms Hematologic/Lymphatic: Reports: No Symptoms Immunologic: Reports: No Symptoms ED EXAM, GENERAL - Physical Exam Exam: See Below Exam Limited By: No Limitations General Appearance: Alert, WD/WN, No Apparent Distress, Other (pale) Eye Exam: Bilateral Eye: Normal Inspection, PERRL Ears: Normal External Exam, Normal Canal, Hearing Grossly Normal, Normal TMs Ear Exam: Bilateral Ear: TM normal Nose: Normal Inspection Throat/Mouth: Normal Lips, Normal Teeth, Normal Gums, Normal Voice, No Airway Compromise, Other (dry mucous membranes) Head: Atraumatic, Normocephalic Neck: Normal Inspection, Supple, Non-Tender, Full Range of Motion. No: Lymphadenopathy (R), Lymphadenopathy (L) Respiratory/Chest: No Respiratory Distress, Lungs Clear, Normal Breath Sounds, No Accessory Muscle Use, Chest Non-Tender. No: Crackles, Rales, Rhonchi, Wheezing Cardiovascular: Normal Peripheral Pulses, Regular Rate, Rhythm, No Edema, No Gallop, No Murmur, No Rub Peripheral Pulses: 2+: Radial (L), Radial (R), Dorsalis Pedis (L), Dorsalis Pedis (R) GI/Abdominal: Normal Bowel Sounds, Soft, Non-Tender, No Organomegaly, No Distention, No Mass. No: Distended, Guarding, Rigid, Rebound, Mass Back Exam: Normal Inspection, Full Range of Motion. No: CVA Tenderness (R), CVA Tenderness (L) Extremities: Normal Inspection, Normal Range of Motion, Non-Tender, No Pedal Edema, Normal Capillary Refill Neurological: Alert, Oriented, CN II-XII Intact, Normal Cognition, Normal Reflexes, No Motor/Sensory Deficits Psychiatric: Normal Affect, Normal Mood Skin Exam: Warm, Dry, Intact, Normal Color, No Rash. No: Ecchymosis, Mottled, Petechiae Lymphatic: No Adenopathy Course - Vital Signs Last Recorded V/S: Last Vital Signs Temp 37.6 C 04/07/20 22:11 Pulse 78 04/07/20 22:11 Resp 18 04/07/20 22:11 BP 107/49 L 04/07/20 22:11 Pulse Ox 92 L 04/07/20 22:11 - Orders/Labs/Meds Orders: Active Orders 24 hr Category Date Time Status Chest 1V Frontal [CR] Stat Exams 04/07/20 20:14 Taken CULTURE BLOOD [BC] Stat Lab 04/07/20 20:15 Received CULTURE BLOOD [BC] Stat Lab 04/07/20 20:25 Received CULTURE URINE [RM] Stat Lab 04/07/20 18:35 Received Iopamidol [Isovue-300 (61%)] Med 04/07/20 22:30 Active 100 ml IV . DIRECTED Sodium Chloride 0.9% [Normal Saline] 1,000 ml Med 04/07/20 16:00 Active IV ASDIRECTED Sodium Chloride 0.9% [Normal Saline] 1,000 ml Med 04/07/20 20:15 Active IV ASDIRECTED Sodium Chloride 0.9% [Normal Saline] 80 ml Med 04/07/20 22:30 Active IV ASDIRECTED Sodium Chloride 0.9% [Saline Flush] Med 04/07/20 16:00 Active 10 ml FLUSH ASDIRECTED PRN Saline Lock Insert [OM.PC] Routine Oth 04/07/20 16:00 Ordered Medication Orders Sodium Chloride (Normal Saline) 1,000 mls @ 500 mls/hr IV ASDIRECTED CAMERON Last Admin: 04/07/20 16:11 Dose: 500 mls/hr Documented by: MARY Sodium Chloride (Normal Saline) 1,000 mls @ 500 mls/hr IV ASDIRECTED CAMERON Last Admin: 04/07/20 20:16 Dose: 500 mls/hr Documented by: CHEPE Sodium Chloride (Normal Saline) 80 mls @ 3 mls/sec IV ASDIRECTED CAMERON Last Admin: 04/07/20 22:47 Dose: 3 mls/sec Documented by: VERA Iopamidol (Isovue-300 (61%)) 100 ml IV . DIRECTED CAMERON Last Admin: 04/07/20 22:47 Dose: 100 ml Documented by: VERA Sodium Chloride (Saline Flush) 10 ml FLUSH ASDIRECTED PRN PRN Reason: Keep Vein Open Labs: Laboratory Tests 04/07/20 04/07/20 04/07/20 Range/Units 16:12 16:12 18:04 WBC 11.0 (4.5-11.0) K/uL RBC 4.06 L (4.30-5.90) M/uL Hgb 12.0 (12.0-15.0) g/dL Hct 36.4 L (40.0-54.0) % MCV 90 (80-98) fL MCH 30 (27-31) pg MCHC 33 (32-36) % Plt Count 219 (150-400) K/uL Neut % (Auto) 88 H (36-66) % Lymph % (Auto) 4 L (24-44) % [place] % (Auto) 8 H (2-6) % Eos % (Auto) 0 L (2-4) % Baso % (Auto) 0 (0-1) % Sodium 135 L (140-148) mmol/L Potassium 5.0 (3.6-5.2) mmol/L Chloride 101 (100-108) mmol/L Carbon Dioxide 24 (21-32) mmol/L Anion Gap 15.0 H (5.0-14.0) mmol/L BUN 18 D (7-18) mg/dL Creatinine 1.1 (0.8-1.3) mg/dL Est Cr Clr Drug Dosing 48.11 mL/min Estimated GFR (MDRD) > 60 (>60) Glucose 198 H (74-106) mg/dL POC Glucose (74-106) MG/DL Lactic Acid (0.4-2.0) mmol/L Calcium 8.9 (8.5-10.1) mg/dL Total Bilirubin 2.3 H D (0.2-1.0) mg/dL AST 226 H D (15-37) U/L ALT 193 H (12-78) U/L Alkaline Phosphatase 220 H D (46-116) U/L Total Protein 7.4 (6.4-8.2) g/dL Albumin 3.5 (3.4-5.0) g/dL Globulin 3.9 H (2.3-3.5) g/dL Albumin/Globulin Ratio 0.9 L (1.2-2.2) Lipase (73-393) U/L Procalcitonin ng/mL Urine Color Yellow (YELLOW) Urine Appearance Slightly cloudy A (CLEAR) Urine pH 5.5 (5.0-8.0) Ur Specific Castor >= 1.030 (1.008-1.030) Urine Protein Negative (NEGATIVE) mg/dL Urine Glucose (UA) Negative (NEGATIVE) mg/dL Urine Ketones Trace H (NEGATIVE) mg/dL Urine Occult Blood Trace-lysed H (NEGATIVE) Urine Nitrite Negative (NEGATIVE) Urine Bilirubin Negative (NEGATIVE) Urine Urobilinogen 0.2 (0.2-1.0) EU/dL Ur Leukocyte Esterase Small H (NEGATIVE) Urine RBC 0-5 (0-5) Urine WBC 20-30 H (0-5) Ur Epithelial Cells Not seen Amorphous Sediment Rare Urine Bacteria Many Urine Mucus Few SARS Virus RNA (PCR) (NEGATIVE) 04/07/20 04/07/20 04/07/20 Range/Units 18:27 18:30 18:35 WBC (4.5-11.0) K/uL RBC (4.30-5.90) M/uL Hgb (12.0-15.0) g/dL Hct (40.0-54.0) % MCV (80-98) fL MCH (27-31) pg MCHC (32-36) % Plt Count (150-400) K/uL Neut % (Auto) (36-66) % Lymph % (Auto) (24-44) % [place] % (Auto) (2-6) % Eos % (Auto) (2-4) % Baso % (Auto) (0-1) % Sodium (140-148) mmol/L Potassium (3.6-5.2) mmol/L Chloride (100-108) mmol/L Carbon Dioxide (21-32) mmol/L Anion Gap (5.0-14.0) mmol/L BUN (7-18) mg/dL Creatinine (0.8-1.3) mg/dL Est Cr Clr Drug Dosing mL/min Estimated GFR (MDRD) (>60) Glucose (74-106) mg/dL POC Glucose 172 H (74-106) MG/DL Lactic Acid 1.1 (0.4-2.0) mmol/L Calcium (8.5-10.1) mg/dL Total Bilirubin (0.2-1.0) mg/dL AST (15-37) U/L ALT (12-78) U/L Alkaline Phosphatase (46-116) U/L Total Protein (6.4-8.2) g/dL Albumin (3.4-5.0) g/dL Globulin (2.3-3.5) g/dL Albumin/Globulin Ratio (1.2-2.2) Lipase (73-393) U/L Procalcitonin 0.24 ng/mL Urine Color (YELLOW) Urine Appearance (CLEAR) Urine pH (5.0-8.0) Ur Specific Castor (1.008-1.030) Urine Protein (NEGATIVE) mg/dL Urine Glucose (UA) (NEGATIVE) mg/dL Urine Ketones (NEGATIVE) mg/dL Urine Occult Blood (NEGATIVE) Urine Nitrite (NEGATIVE) Urine Bilirubin (NEGATIVE) Urine Urobilinogen (0.2-1.0) EU/dL Ur Leukocyte Esterase (NEGATIVE) Urine RBC (0-5) Urine WBC (0-5) Ur Epithelial Cells Amorphous Sediment Urine Bacteria Urine Mucus SARS Virus RNA (PCR) (NEGATIVE) 04/07/20 04/07/20 Range/Units 20:34 20:47 WBC (4.5-11.0) K/uL RBC (4.30-5.90) M/uL Hgb (12.0-15.0) g/dL Hct (40.0-54.0) % MCV (80-98) fL MCH (27-31) pg MCHC (32-36) % Plt Count (150-400) K/uL Neut % (Auto) (36-66) % Lymph % (Auto) (24-44) % [place] % (Auto) (2-6) % Eos % (Auto) (2-4) % Baso % (Auto) (0-1) % Sodium (140-148) mmol/L Potassium (3.6-5.2) mmol/L Chloride (100-108) mmol/L Carbon Dioxide (21-32) mmol/L Anion Gap (5.0-14.0) mmol/L BUN (7-18) mg/dL Creatinine (0.8-1.3) mg/dL Est Cr Clr Drug Dosing mL/min Estimated GFR (MDRD) (>60) Glucose (74-106) mg/dL POC Glucose (74-106) MG/DL Lactic Acid (0.4-2.0) mmol/L Calcium (8.5-10.1) mg/dL Total Bilirubin (0.2-1.0) mg/dL AST (15-37) U/L ALT (12-78) U/L Alkaline Phosphatase (46-116) U/L Total Protein (6.4-8.2) g/dL Albumin (3.4-5.0) g/dL Globulin (2.3-3.5) g/dL Albumin/Globulin Ratio (1.2-2.2) Lipase 16 L (73-393) U/L Procalcitonin ng/mL Urine Color (YELLOW) Urine Appearance (CLEAR) Urine pH (5.0-8.0) Ur Specific Castor (1.008-1.030) Urine Protein (NEGATIVE) mg/dL Urine Glucose (UA) (NEGATIVE) mg/dL Urine Ketones (NEGATIVE) mg/dL Urine Occult Blood (NEGATIVE) Urine Nitrite (NEGATIVE) Urine Bilirubin (NEGATIVE) Urine Urobilinogen (0.2-1.0) EU/dL Ur Leukocyte Esterase (NEGATIVE) Urine RBC (0-5) Urine WBC (0-5) Ur Epithelial Cells Amorphous Sediment Urine Bacteria Urine Mucus SARS Virus RNA (PCR) Negative (NEGATIVE) fernandez virus test negative Meds: Medications Generic Name Dose Route Start Last Admin Trade Name Freq PRN Reason Stop Dose Admin Sodium Chloride 1,000 mls @ 500 mls/hr 04/07/20 16:00 04/07/20 16:11 Normal Saline IV 500 mls/hr ASDIRECTED CAMERON Administration Sodium Chloride 1,000 mls @ 500 mls/hr 04/07/20 20:15 04/07/20 20:16 Normal Saline IV 500 mls/hr ASDIRECTED CAMERON Administration Sodium Chloride 80 mls @ 3 mls/sec 04/07/20 22:30 04/07/20 22:47 Normal Saline IV 3 mls/sec ASDIRECTED CAMERON Administration Iopamidol 100 ml 04/07/20 22:30 04/07/20 22:47 Isovue-300 (61%) IV 100 ml . DIRECTED CAMERON Administration Sodium Chloride 10 ml 04/07/20 16:00 Saline Flush FLUSH ASDIRECTED PRN Keep Vein Open Discontinued Medications Generic Name Dose Route Start Last Admin Trade Name Freq PRN Reason Stop Dose Admin Famotidine 20 mg 04/07/20 20:21 04/07/20 20:30 Pepcid IVPUSH 04/07/20 20:22 20 mg ONETIME ONE Administration Ceftriaxone Sodium 1 gm/ 50 mls @ 100 mls/hr 04/07/20 20:12 04/07/20 20:20 Sodium Chloride IV 04/07/20 20:41 100 mls/hr ONETIME ONE Administration Metronidazole 500 mg/ Premix 100 mls @ 100 mls/hr 04/07/20 20:53 04/07/20 21:17 IV 04/07/20 21:52 100 mls/hr ONETIME ONE Administration Ondansetron HCl 4 mg 04/07/20 16:00 04/07/20 16:11 Zofran IVPUSH 04/07/20 16:01 4 mg ONETIME ONE Administration Ondansetron HCl 4 mg 04/07/20 20:11 04/07/20 20:21 Zofran Odt PO 04/07/20 20:12 Not Given ONETIME ONE Ondansetron HCl 4 mg 04/07/20 20:17 04/07/20 20:22 Zofran IVPUSH 04/07/20 20:18 4 mg ONETIME ONE Administration - Radiology Interpretation Free Text/Narrative:: CT abdomen/pelvis with and without contrast completed. Noted exophytic cyst in the posterior mid zone of the left kidney 4 x 2.6cm. 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 Severe diffuse atherosclerotic calcifications fo the abdominal aorta and its tributaries are present. No other significant findings. CT Results Date: 04/07/20 - Re-Assessments/Exams Free Text/Narrative Re-Assessment/Exam: 04/07/20 17:15 Lab work discussed with patient, 500ml normal saline infused. Patient denies nausea, at this time, states he feels better. Liver enzymes elevated, he will stop use of acetaminophen. 04/07/20 20:16 Patient developed fever of 102.8 prior to discharge, small 10 ml bile emesis. Patient given ondansetron 4mg IV, additional IV normal saline fluids. We will complete lipase, administer rocephin 1 gram IV, famotidine IV, complete CXR, blood cultures, Stat COVID. Dr. Olmstead notified of patient status. Patient will be admitted per Dr. Olmstead. 04/07/20 21:14 Patient continues to be nauseated, developing mild RUQ pain. Discussed concern for ascending cholangitis with Dr. Olmstead. We are not able to complete procedures needed for diagnosis here. Dr. Olmstead recommends transfer to facility capable. Concerns discussed with patient and his daughter, they would like transfer to [facility]. 04/07/20 22:16 Patient status, lab work and history discussed with Dr. Fields [facility]. He accepts patient for transfer. Requests completion of abdominal/pelvic CT with and without contrast prior to transfer. Patient and his family notified, they are in agreement with plan. 04/07/20 22:35 Patient status, transfer discussed with patient , all her questions were answered. Departure - Departure Time of Disposition: 18:06 Disposition: DC/Tfer to Acute Hospital 02 Condition: Good Clinical Impression: Dehydration after exertion, Elevated liver function tests, UTI (urinary tract infection), Nausea & vomiting, Hyperbilirubinemia - Discharge Information *PRESCRIPTION DRUG MONITORING PROGRAM REVIEWED*: Not Applicable *COPY OF PRESCRIPTION DRUG MONITORING REPORT IN PATIENT SHERYL: Not Applicable Referrals: Beny Olmstead Sr, MD [Primary Care Provider] - Forms: ED Department Discharge Additional Instructions: Patient developed fever of 102.5 Additional lab work completed. Dr. Olmstead notified of patient status, labs, patient will be transferred to [facility]. Dr. Fields accepts patient for admit. Sepsis Event Note (ED) - Evaluation Sepsis Screening Result: No Definite Risk - Focused Exam Vital Signs: Vital Signs Temp Pulse Resp BP Pulse Ox 04/07/20 22:11 37.6 C 78 18 107/49 L 92 L 04/07/20 21:00 39.1 C H 95 20 133/48 L 94 L 04/07/20 20:00 94 18 136/60 94 L 04/07/20 19:00 90 148/68 H 95 04/07/20 18:04 37.8 C 84 135/71 96 04/07/20 16:54 79 128/61 95 04/07/20 16:24 79 117/66 97 04/07/20 15:34 38.1 C 82 19 144/75 H 95 04/07/20 15:27 38.1 C 82 19 144/75 H 95 - My Orders Last 24 Hours: My Active Orders 04/07/20 16:00 Sodium Chloride 0.9% [Normal Saline] 1,000 ml IV ASDIRECTED Sodium Chloride 0.9% [Saline Flush] 10 ml FLUSH ASDIRECTED PRN Saline Lock Insert [OM.PC] Routine 04/07/20 18:35 CULTURE URINE [RM] Stat 04/07/20 20:14 Chest 1V Frontal [CR] Stat 04/07/20 20:15 CULTURE BLOOD [BC] Stat Sodium Chloride 0.9% [Normal Saline] 1,000 ml IV ASDIRECTED 04/07/20 20:25 CULTURE BLOOD [BC] Stat 04/07/20 22:30 Iopamidol [Isovue-300 (61%)] 100 ml IV . DIRECTED Sodium Chloride 0.9% [Normal Saline] 80 ml IV ASDIRECTED - Assessment/Plan Last 24 Hours: My Active Orders 04/07/20 16:00 Sodium Chloride 0.9% [Normal Saline] 1,000 ml IV ASDIRECTED Sodium Chloride 0.9% [Saline Flush] 10 ml FLUSH ASDIRECTED PRN Saline Lock Insert [OM.PC] Routine 04/07/20 18:35 CULTURE URINE [RM] Stat 04/07/20 20:14 Chest 1V Frontal [CR] Stat 04/07/20 20:15 CULTURE BLOOD [BC] Stat Sodium Chloride 0.9% [Normal Saline] 1,000 ml IV ASDIRECTED 04/07/20 20:25 CULTURE BLOOD [BC] Stat 04/07/20 22:30 Iopamidol [Isovue-300 (61%)] 100 ml IV . DIRECTED Sodium Chloride 0.9% [Normal Saline] 80 ml IV ASDIRECTED Assessment:: Dehydration after exertion, Elevated liver function tests, UTI (urinary tract infection), Nausea & vomiting, Hyperbilirubinemia Concern for ascending cholangitis Plan: Patient transferred to [facility], acceptance per Dr. Fields.
[2020-04-07] MEDS ORDERED: Ondansetron 4 MG Tab.DIS PO ONE (20:11)
[2020-04-07] MEDS ORDERED: cefTRIAXone 1 GM in Sodium Chloride 0.9% 50 ML IV ONE (20:12)
[2020-04-07] MEDS ORDERED: Famotidine 20 MG/2 ML SDV IVPUSH ONE (20:21)
[2020-04-07] MEDS ORDERED: metroNIDAZOLE/Normal Saline 500 MG in Premix Bag 1 BAG IV ONE (20:53)
[2020-04-07 22:12] VITALS: BP 107/49; PULSE 78
[2020-04-07] MEDS ORDERED: Sodium Chloride 0.9% 80 ML IV SCH (22:30)
[2020-04-07] MEDS ORDERED: Iopamidol 612 MG/ML 100 ML Bottle IV SCH (22:30)
--- NOTE | 2020-04-07 23:19 | CRLCT ---
INDICATION: Abdominal pain, fever, elevated liver enzymes TECHNIQUE: CT Abdomen and pelvis with i.v. contrast. Coronal and sagittal reformats were obtained. CONTRAST: 100 mL Isovue 300 COMPARISON: None FINDINGS: Lower chest: A small calcified granuloma is present in the posterior right middle lobe. Liver: Unremarkable. Spleen: Unremarkable. Pancreas: The patient is status post a Whipple procedure. Gallbladder: Unremarkable. Moderate pneumobilia is present. Kidney: There is an exophytic cyst in the posterior mid zone of the left kidney measuring 4 x 2.6 cm. Adrenal: Unremarkable. Bowel: Unremarkable. The appendix is not identified. Vascular: There is a bilobed ectasia of the infrarenal aorta present measuring 2.7 cm. 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 Severe diffuse atherosclerotic calcifications of the abdominal aorta and its tributaries are present. Lymph: Unremarkable. Peritoneum: Unremarkable. No pneumoperitoneum is seen. No significant ascites is noted. Pelvis: Unremarkable. Soft tissue: Unremarkable. 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 IMPRESSION: 1. Unremarkable with no CT correlate for the patient`s symptoms seen. Dictated by Virgil Kumari MD @ 04/07/2020 11:12:26 PM Please note that all CT scans at this facility use dose modulation, iterative reconstruction, and/or weight-based dosing when appropriate to reduce radiation dose to as low as reasonably achievable. Dictated by: Virgil Kumari MD @ 04/07/2020 23:17:26 (Electronically Signed)
--- NOTE | 2020-04-10 09:15 | CR ---
CHEST: Portable 04/07/2020 8:40 PM CLINICAL HISTORY:Fever COMPARISON:2017 FINDINGS: The heart size, pulmonary vascularity and hilar structures are normal. No infiltrate effusion or pneumothorax is seen. There is interstitial prominence in both lower lung mosley. This is similar to 2017. There are atherosclerotic changes in the aorta. IMPRESSION: No acute cardiopulmonary process. Chronic interstitial changes
== END 2020-04-08 00:15 ==
LOC: JP.ED 15:23
DX: E86.0 Dehydration (principal); R79.89 Other specified abnormal findings of blood chemistry; N39.0 Urinary tract infection, site not specified; E80.6 Other disorders of bilirubin metabolism; Z88.0 Allergy status to penicillin; Z79.899 Other long term (current) drug therapy; E11.9 Type 2 diabetes mellitus without complications; E03.9 Hypothyroidism, unspecified; Z79.84 Long term (current) use of oral hypoglycemic drugs; Z20.828 Contact with and (suspected) exposure to other viral communicable diseases
CPT/HCPCS: 36415; 71045; 74178; 80053; 81001; 82962; 83605; 83690; 84145; 85025; 87040; 87086; 96361; 96365; 96367; 96375; 96376; 99285; J0696; J2405; J3490; J7030; J7050; Q9967; U0002

== ENCOUNTER 2020-12-20 08:28 | Emergency (ER) | payer MEDICARE ==
--- NOTE | 2020-12-20 08:51 | EDM.PDOC ---
ED HPI GENERAL MEDICAL PROBLEM - General Chief Complaint: Neuro Symptoms/Deficits Stated Complaint: POSSIBLE STROKE Time Seen by Provider: 12/20/20 08:45 Source of Information: Reports: Patient, Family, Provider, RN Notes Reviewed History Limitations: Reports: No Limitations - History of Present Illness INITIAL COMMENTS - FREE TEXT/NARRATIVE: 85-year-old gentleman presents emergency department with a complaint of left- sided weakness, he was evaluated by his primary care yesterday found to have some ptosis in the left eye was set up for an MRI today at 4:30 in the afternoon. However approximately 5 hours prior to presentation emergency department he awoke this morning got a drink of water and found that he was drooling because he could not operate out of the left side of his mouth. He then appreciated facial droop on the left side as well as inability to smile. He does not describe any weakness on the left side of his body or any other focal neurologic deficit. No recent fevers no nausea vomiting no shortness of breath or chest pain - Related Data Allergies Allergy/AdvReac Type Severity Reaction Status Date / Time Penicillins Allergy Rash Verified 04/07/20 15:36 Home Meds: Home Meds Amylase/Lipase/Protease [Lacey CLEMENTS 12,000 Units] 3 cap PO TIDAC 09/17/13 [History] Famciclovir 500 mg PO Q7D 09/17/13 [History] Levothyroxine Sodium [Levoxyl] 112 mcg PO DAILY 09/17/13 [History] Tamsulosin HCl [Flomax] 0.4 mg PO DAILY 09/17/13 [History] Diphenoxylate HCl/Atropine [Diphenoxylate-Atrop 2.5-0.025] 1 tab PO BID 06/26/18 [History] Linagliptin [Tradjenta] 5 mg PO DAILY 04/07/20 [History] valACYclovir [Valtrex] 1,000 mg PO TID #21 tab 12/20/20 [Rx] Past Medical History HEENT History: Reports: Hard of Hearing Gastrointestinal History: Reports: Pancreatitis Other Gastrointestinal History: 4 hernias Genitourinary History: Reports: Other (See Below) Other Genitourinary History: 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 Musculoskeletal History: Reports: Back Pain, Chronic, Fracture Neurological History: Reports: Concussion, Head Trauma Psychiatric History: Reports: Depression Endocrine/Metabolic History: Reports: Diabetes, Type II, Hypothyroidism Hematologic History: Reports: Blood Transfusion(s) Immunologic History: Reports: Other (See Below) Other Immunologic History: pemphagus, herpes simplex of mouth Oncologic (Cancer) History: Reports: Prostate - Infectious Disease History Infectious Disease History: Reports: C-Difficile - Past Surgical History HEENT Surgical History: Reports: None GI Surgical History: Reports: Other (See Below) Other GI Surgeries/Procedures: whipple procedure Male Surgical History: Reports: None Endocrine Surgical History: Reports: None Neurological Surgical History: Reports: None Musculoskeletal Surgical History: Reports: None, Other (See Below) Other Musculoskeletal Surgeries/Procedures:: 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 Oncologic Surgical History: Reports: None Social & Family History - Family History Family Medical History: No Pertinent Family History - Caffeine Use Caffeine Use: Reports: Coffee ED ROS GENERAL - Review of Systems Review Of Systems: See Below Constitutional: Reports: No Symptoms HEENT: Reports: Other (Facial droop with ptosis on the left eye). Denies: Eye Discharge, Vision Change Respiratory: Reports: No Symptoms Cardiovascular: Reports: No Symptoms GI/Abdominal: Reports: No Symptoms Neurological: Reports: Weakness ED EXAM, NEURO - Physical Exam Exam: See Below Text/Narrative:: General: Elderly male, not in any distress, alert and oriented x3 HEENT: head is atraumatic normocephalic, eyes pupils equal round reactive to light, sclera clear no conjunctivitis appreciated extraocular eye movements intact ptosis is appreciated in the left eyelid. Mouth mucosa is moist and pink no erythema or exudate noted in soft palate, tongue is midline uvula is midline, dentition is intact facial droop on the left side of the mouth. Neck: Supple no thyromegaly no tracheal deviation. Nodes: Cervical nodes subclavicular nodes nontender no palpable lymphadenopathy noted. Lungs: clear to auscultation bilaterally with symmetrical respirations, no adventitious noise appreciated. CV: Regular rate and rhythm S1 and S2 appreciated no murmurs rubs or gallops noted. Abdomen: Soft, nontender, no palpable masses or organomegaly appreciated, no distention no guarding bowel sounds are present, [scars ]. Neuro: Cranial nerves II test with pupillary light reflex 3 mm to 2 mm bilaterally, CN III test pupillary constriction, lid elevation is weaker on the left eye he can close it but I cannot open it and eye abduction bilaterally, CN IV downward movement of eyes bilaterally, CN V good jaw movement, CN lateral deviation of the eyes bilaterally to finger movement, CN VII asymmetrical smile with loss on the left side, CN VIII pass finger rub to ears bilaterally, CN IX adequate voice and tone, CN X adequate voice and tone no difficulty swallowing, CN XI can shrug shoulders without difficulty, CN XII can stick tongue out without difficulty, cranial nerves II to XII intact as tested, power is 5 out 5 in upper and lower extremities, patellar reflex, biceps reflex +2, no dysdiadochokinesis, no focal neurologic deficit is appreciated, weakness in facial muscles consistent with a Talley's palsy Skin: Warm and dry, intact Extremities: No lower extremity edema appreciated, pedal pulse is +2. #1 Interpretation EKG Date: 12/20/20 Time: 09:03 Rhythm: NSR [place]iler: LAD-Left [place]iler Deviation P-Wave: Present QRS: RBBB ST-T: Normal QT: Normal Comparison: NA - No Prior EKG Course - Vital Signs Last Recorded V/S: Last Vital Signs Temp 97.9 F 12/20/20 09:04 Pulse 58 L 12/20/20 09:30 Resp 12 12/20/20 09:30 BP 150/77 H 12/20/20 09:30 Pulse Ox 95 12/20/20 09:30 - Orders/Labs/Meds Orders: Active Orders 24 hr Category Date Time Status EKG Documentation Completion [RC] ASDIRECTED Care 12/20/20 08:56 Active EKG 12 Lead [EK] Stat Ther 12/20/20 08:55 Ordered Labs: Laboratory Tests 12/20/20 12/20/20 12/20/20 Range/Units 09:01 09:01 09:01 WBC 6.7 (4.5-11.0) K/uL RBC 4.11 L (4.30-5.90) M/uL Hgb 12.1 (12.0-15.0) g/dL Hct 37.2 L (40.0-54.0) % MCV 91 (80-98) fL MCH 29 (27-31) pg MCHC 33 (32-36) % Plt Count 287 (150-400) K/uL Neut % (Auto) 52 (36-66) % Lymph % (Auto) 32 (24-44) % Jay % (Auto) 12 H (2-6) % Eos % (Auto) 3 (2-4) % Baso % (Auto) 0 (0-1) % Sodium 142 (140-148) mmol/L Potassium 4.8 (3.6-5.2) mmol/L Chloride 106 (100-108) mmol/L Carbon Dioxide 25 (21-32) mmol/L Anion Gap 11.2 (5.0-14.0) mmol/L BUN 20 H (7-18) mg/dL Creatinine 1.0 (0.8-1.3) mg/dL Est Cr Clr Drug Dosing TNP Estimated GFR (MDRD) > 60 (>60) Glucose 123 H (74-106) mg/dL Calcium 9.5 (8.5-10.1) mg/dL Total Bilirubin 1.3 H (0.2-1.0) mg/dL AST 18 D (15-37) U/L ALT 27 D (12-78) U/L Alkaline Phosphatase 132 H (46-116) U/L Total Protein 7.2 (6.4-8.2) g/dL Albumin 3.5 (3.4-5.0) g/dL Globulin 3.7 H (2.3-3.5) g/dL Albumin/Globulin Ratio 1.0 L (1.2-2.2) TSH, Ultra Sensitive 4.108 H (0.358-3.740) uIU/mL Departure - Departure Time of Disposition: 10:01 Disposition: Home, Self-Care 01 Condition: Fair Clinical Impression: Talley's palsy, Left-sided Talley's palsy - Discharge Information Prescriptions: valACYclovir [Valtrex] 1,000 mg PO TID #21 tab Instructions: Talley Palsy, Adult Referrals: Beny Olmstead Sr, MD [Primary Care Provider] - Forms: ED Department Discharge Additional Instructions: The medication of Valtrex has been faxed to [facility], you have a prescription for prednisone which is an anti-inflammatory, recommend using artificial tears please report for your MRI this afternoon and then follow-up with Dr. Olmstead next 3 to 5 days for further evaluation Sepsis Event Note (ED) - Focused Exam Vital Signs: Vital Signs Temp Pulse Resp BP Pulse Ox 12/20/20 09:30 58 L 12 150/77 H 95 12/20/20 09:04 97.9 F 100 18 146/69 H 100 12/20/20 08:58 97.9 F 100 18 146/69 H 100 - My Orders Last 24 Hours: My Active Orders 12/20/20 08:55 EKG 12 Lead [EK] Stat 12/20/20 08:56 EKG Documentation Completion [RC] ASDIRECTED - Assessment/Plan Last 24 Hours: My Active Orders 12/20/20 08:55 EKG 12 Lead [EK] Stat 12/20/20 08:56 EKG Documentation Completion [RC] ASDIRECTED Plan: Assessment Acuity = acute Site and laterality = Talley's palsy left side Etiology = unknown suspicious for underlying Lyme Manifestations = none Location of injury = Home Lab values = CBC unremarkable CMP reveals a total bilirubin elevated 1.3 consistent hyperbilirubinemia TSH elevated 4.[address] scan reveals no acute process he is scheduled for an MRI this afternoon Plan Call discussed case Dr. Olmstead at 940 recommend continue with the MRI which was already set up for this afternoon for his ongoing ptosis did add facial pathways for further evaluation. I am suspicious for possibly a Lyme etiology as he did get bit by deer tick earlier this fall. Treatment of prednisone taper 60 mg for 4 days 30 mg for 3 days 10 mg for 3 days and then 5 mg for 4 days then stop also antivirals Valtrex 1 g 3 times a day x7 days he will also use artificial tears This note was dictated using [employer] voice recognition software please call with any questions on syntax or grammar.
--- NOTE | 2020-12-20 09:03 | CT ---
Head wo Cont CLINICAL HISTORY: Left facial weakness COMPARISON: 2017 TECHNIQUE: Transverse scans were obtained from the base of the skull through the vertex without IV contrast on a multislice, multidetector CT scanner. Auto dosage reduction and iterative reconstruction techniques employed. FINDINGS: No focal abnormal parenchymal density is identified. There is no mass effect, hemorrhage, or extraaxial collection. There is some scattered the periventricular and subcortical lucency. The basal cisterns and sulci over the convexities are prominent. The ventricles are mildly prominent. IMPRESSION: Moderate atrophy Mild chronic ischemic microvascular changes No acute intracranial findings
[2020-12-20 09:31] VITALS: BP 150/77; PULSE 58
== END 2020-12-20 10:18 | disposition home or self-care (01) ==
LOC: JP.ED 08:28
DX: G51.0 Bell's palsy (principal); E11.9 Type 2 diabetes mellitus without complications; Z79.84 Long term (current) use of oral hypoglycemic drugs; E03.9 Hypothyroidism, unspecified; Z79.899 Other long term (current) drug therapy; Z88.0 Allergy status to penicillin
CPT/HCPCS: 36415; 70450; 70450-26; 80053; 84443; 85025; 93005; 99283; 99285-25

== ENCOUNTER 2021-04-10 07:06 | Inpatient (IN) | payer MEDICARE ==
[~2021-04-10 07:06] MED LIST: Bupivacaine 0.5% 50 ML MDV ONE; Bupivacaine 0.5%/EPINEPHrine 1:200,000 50 ML MDV ONE; Meropenem 500 MG SDV ONE; fentaNYL 250 MCG/5 ML SDV ONE
[2021-04-10] MEDS ORDERED: Ondansetron 4 MG/2 ML SDV IVPUSH PRN ×2 (07:26→13:00)
[2021-04-10] MEDS ORDERED: diphenhydrAMINE 50 MG/ML SDV IVPUSH PRN ×2 (07:26→13:00)
[2021-04-10] MEDS ORDERED: diphenhydrAMINE 25 MG Cap PO PRN (07:26)
[2021-04-10] MEDS ORDERED: Naloxone 0.4 MG/ML SDV IVPUSH PRN (07:26)
[2021-04-10] MEDS ORDERED: Dextrose 5%-Lactated Ringers 1,000 ML IV SCH (07:45)
[2021-04-10] MEDS ORDERED: Acetaminophen 500 MG Tab PO ONE (07:45)
[2021-04-10] MEDS ORDERED: ceFAZolin 2 GM in Premix Bag 1 BAG IV ONE (08:45)
[2021-04-10] MEDS ORDERED: Ropivacaine 35 ML, dexAMETHasone 8 MG, EPINEPHrine 0.4 MG, Sodium Chloride 0.9% 42.6 ML NERVRT SCH ×4 (09:00)
[2021-04-10] MEDS ORDERED: Lactated Ringers 1,000 ML ONE (11:10)
[2021-04-10] MEDS ORDERED: Rocuronium 50 MG/5 ML Vial ONE (11:11)
[2021-04-10] MEDS ORDERED: Neostigmine Methylsulfate 1 MG/ML 5 ML Syringe ONE (11:11)
[2021-04-10] MEDS ORDERED: Ondansetron 4 MG/2 ML SDV ONE (11:11)
[2021-04-10] MEDS ORDERED: Dexamethasone 4 MG/ML SDV ONE (11:11)
[2021-04-10] MEDS ORDERED: Propofol 200 MG/20 ML SDV ONE (11:11)
[2021-04-10] MEDS ORDERED: Glycopyrrolate 0.2 MG/ML 5 ML MDV ONE (11:11)
[2021-04-10] MEDS ORDERED: Succinylcholine 200 MG/10 ML MDV ONE (11:11)
[2021-04-10] MEDS ORDERED: Lidocaine 1% with EPINEPHrine 1:100,000 50 ML MDV ONE (11:28)
[2021-04-10] MEDS ORDERED: Insulin Lispro 100 Unit/ML 3 ML KwikPen SUBCUT ONE (12:30)
[2021-04-10] MEDS: HYDROmorphone/Normal Saline 15 MG/30 ML PCA IV PRN (12:52)
[2021-04-10] MEDS ORDERED: Calcium Gluconate 10% 1 GM/10 ML SDV IVPUSH PRN (12:56)
[2021-04-10] MEDS ORDERED: Labetalol 20 MG/4 ML Syringe IVPUSH PRN (13:00)
[2021-04-10] MEDS ORDERED: hydrOXYzine HCL 100 MG/2 ML SDV IM PRN (13:00)
[2021-04-10] MEDS ORDERED: Acetaminophen 500 MG Tab PO PRN (13:00)
[2021-04-10] MEDS ORDERED: Metoclopramide 10 MG/2 ML SDV IVPUSH PRN (13:00)
[2021-04-10] MEDS: Pantoprazole 40 MG Vial IVPUSH SCH (15:18)
[2021-04-10] MEDS ORDERED: MVI, Adult with Vitamin K 10 ML, Thiamine 200 MG, Zinc/Copper/Manganese/Selenium 1 ML i... IV SCH ×4 (16:00)
[2021-04-10] MEDS: Acetaminophen 500 MG Tab PO SCH (16:20)
[2021-04-10] MEDS: Insulin Lispro 100 Unit/ML 3 ML KwikPen SUBCUT SCH ×2 (16:26→22:25)
[2021-04-10] MEDS: ceFAZolin 2 GM in Premix Bag 1 BAG IV SCH (18:08)
[2021-04-10] MEDS: Phenol/Sodium Phenolate Spray 180 ML Bottle MUCMEM PRN ×2 (18:16→20:14)
[2021-04-10] MEDS: Tamsulosin 0.4 MG Cap.ER PO SCH (20:10)
[2021-04-10] MEDS: Latanoprost 0.005% Ophth Soln 2.5 ML Bottle EYEBOTH SCH (20:10)
[2021-04-10] MEDS: Amylase/Lipase/Protease 12,000 Unit Cap.CR PO SCH (20:10)
[2021-04-10] MEDS ORDERED: valACYclovir 1,000 MG Tab PO SCH (21:00)
[2021-04-10] MEDS ORDERED: Atropine/Diphenoxylate 0.025-2.5 MG Tab PO SCH (21:00)
[2021-04-10] MEDS: Cyclobenzaprine 10 MG Tab PO PRN (22:06)
[2021-04-10] MEDS: Dextrose 5%-Lactated Ringers 1,000 ML IV SCH (22:24)
[2021-04-11] MEDS: Acetaminophen 500 MG Tab PO SCH ×4 (00:25→23:15)
[2021-04-11] MEDS: ceFAZolin 2 GM in Premix Bag 1 BAG IV SCH ×2 (02:35→10:08)
[2021-04-11] MEDS: Dextrose 5%-Lactated Ringers 1,000 ML IV SCH (04:31)
[2021-04-11] MEDS: Insulin Lispro 100 Unit/ML 3 ML KwikPen SUBCUT SCH ×4 (04:31→22:26)
[2021-04-11] MEDS ORDERED: Levothyroxine 112 MCG Tab PO SCH (07:30)
[2021-04-11] MEDS: Lactated Ringers 1,000 ML IV SCH ×2 (07:52→17:59)
[2021-04-11] MEDS ORDERED: Atropine/Diphenoxylate 0.025-2.5 MG Tab PO PRN (08:00)
[2021-04-11] MEDS: Docusate Sodium 100 MG Cap PO SCH ×2 (08:31→20:32)
[2021-04-11] MEDS: Levothyroxine 100 MCG, Levothyroxine 25 MCG PO SCH ×2 (08:31)
[2021-04-11] MEDS: Bisacodyl 5 MG Tab PO SCH ×2 (08:31→20:32)
[2021-04-11] MEDS: Acyclovir 200 MG Cap PO SCH ×3 (08:31→20:31)
[2021-04-11] MEDS: Amylase/Lipase/Protease 12,000 Unit Cap.CR PO SCH ×3 (08:32→20:32)
--- NOTE | 2021-04-11 10:25 | PN ---
DATE OF SERVICE: 04/11/2021 SUBJECTIVE: Reji is postop day 1. He reports feeling bloated and distended and he has a sore throat, which is relieved by the Chloraseptic spray. Vital signs have been stable. Oral intake 690. He does have Pollack catheter in. Output is 2450. REVIEW OF SYSTEMS: Remainder of review of systems is negative for any pertinent positives and negatives. OBJECTIVE: GENERAL: Reji Li is a pleasant 85-year-old male. He is alert and orientated. VITAL SIGNS: TPR is 96.1, 73, 19, blood pressure 159/74. HEENT: Negative. NECK: Supple. HEART: Regular rate and rhythm. LUNGS: Clear. ABDOMEN: Dressings dry and intact. Abdominal binder is on. EXTREMITIES: Without peripheral edema. ASSESSMENT: Exploratory laparotomy with lysis of adhesions. 1. Repair of incarcerated incisional hernia with mesh. 2. Repair of incarcerated recurrent umbilical hernia. 3. Placement of Interceed mesh. POSTOPERATIVE DIAGNOSES: 1. Incarcerated recurrent incisional hernia. 2. Incarcerated recurrent umbilical hernia. 3. Extensive intraabdominal adhesions. DATE OF PROCEDURE: 04/10/2021. SURGEON: Ilan Johnson MD. PLAN: 1. Discontinue IV D5 LR. 2. LR IV at 100 mL per hour. 3. Continue clear liquid due to developing postop ileus. 4. Pharmacy consulted in regard to home medication. 5. Colace 100 mg p.o. b.i.d. 6. Dulcolax 10 mg p.o. b.i.d. scheduled. 7. Continue use of incentive spirometer. 8. We will evaluate p.r.n. or in a.m. Meredith Olivier PA-C /[id number]
--- NOTE | 2021-04-11 11:10 | PCM.EKG ---
#1 Interpretation EKG Date: 04/10/21 Time: 07:35 Rhythm: NSR Rate (Beats/Min): 58 [place]: LAD-Left [place] Deviation P-Wave: Present QRS: Other (Left anterior fascicular block) ST-T: Normal QT: Normal Comparison: NA - No Prior EKG
[2021-04-11] MEDS: Pantoprazole 40 MG Vial IVPUSH SCH (13:56)
[2021-04-11] MEDS: Latanoprost 0.005% Ophth Soln 2.5 ML Bottle EYEBOTH SCH (20:32)
[2021-04-11] MEDS: Tamsulosin 0.4 MG Cap.ER PO SCH (20:32)
[2021-04-12] MEDS: Lactated Ringers 1,000 ML IV SCH ×2 (02:58→14:56)
[2021-04-12] MEDS: Insulin Lispro 100 Unit/ML 3 ML KwikPen SUBCUT SCH ×4 (04:39→22:24)
--- NOTE | 2021-04-12 09:55 | PN ---
DATE OF SERVICE: 04/12/2021 SUBJECTIVE: Reji is not passing any flatus. He is n.p.o. with ice chips. Continues to have his Pollack in. Vital signs have been stable. He states he has not been ambulating and is questioning if he should be because that will help his bowels get going. He states he did sit up in the chair 3 times yesterday. REVIEW OF SYSTEMS: Remainder of review of systems negative for any pertinent positives and negatives. OBJECTIVE: GENERAL: Reji Li is a pleasant 85-year-old male, alert and orientated. VITAL SIGNS: TPR is 96.8, 64, 16, blood pressure 147/97. HEENT: Negative. NECK: Supple. HEART: Regular rate and rhythm. LUNGS: Clear. ABDOMEN: Dressings dry and intact. He is quite distended, firm. EXTREMITIES: Without peripheral edema. ASSESSMENT: Exploratory laparotomy with lysis of adhesions. 1. Repair of incarcerated incisional hernia with mesh. 2. Repair of incarcerated recurrent umbilical hernia. 3. Placement of Interceed mesh. POSTOPERATIVE DIAGNOSES: 1. Incarcerated recurrent incisional hernia. 2. Incarcerated recurrent umbilical hernia. 3. Extensive intraabdominal adhesions. 4. Date of procedure: 04/10/2021. Surgeon: Ilan Johnson MD. PLAN: 1. Ambulate 6 times daily in elizondo. 2. Remove Pollack catheter after the patient has bowel movement. 3. We will evaluate p.r.n. or in a.m. Meredith Olivier PA-C /[id number]
[2021-04-12] MEDS: Docusate Sodium 100 MG Cap PO SCH ×2 (09:57→20:23)
[2021-04-12] MEDS: Bisacodyl 5 MG Tab PO SCH ×2 (09:57→20:23)
[2021-04-12] MEDS: Acetaminophen 500 MG Tab PO SCH ×2 (09:57→16:39)
[2021-04-12] MEDS: Amylase/Lipase/Protease 12,000 Unit Cap.CR PO SCH ×3 (09:57→20:23)
[2021-04-12] MEDS: Levothyroxine 100 MCG, Levothyroxine 25 MCG PO SCH ×2 (09:57)
[2021-04-12] MEDS: Acyclovir 200 MG Cap PO SCH ×3 (09:57→20:24)
[2021-04-12] MEDS: HYDROmorphone/Normal Saline 15 MG/30 ML PCA IV PRN (10:13)
[2021-04-12] MEDS: Pantoprazole 40 MG Vial IVPUSH SCH (14:07)
[2021-04-12] MEDS: Tamsulosin 0.4 MG Cap.ER PO SCH (20:23)
[2021-04-12] MEDS: Latanoprost 0.005% Ophth Soln 2.5 ML Bottle EYEBOTH SCH (20:24)
[2021-04-13] MEDS: Acetaminophen 500 MG Tab PO SCH ×4 (00:58→23:03)
[2021-04-13] MEDS: Lactated Ringers 1,000 ML IV SCH ×3 (01:01→21:30)
[2021-04-13] MEDS: Insulin Lispro 100 Unit/ML 3 ML KwikPen SUBCUT SCH ×4 (04:47→21:38)
[2021-04-13] MEDS ORDERED: Furosemide 20 MG/2 ML VIAL IVPUSH ONE ×2 (07:00→16:00)
[2021-04-13] MEDS: Levothyroxine 100 MCG, Levothyroxine 25 MCG PO SCH ×2 (08:03)
[2021-04-13] MEDS: Amylase/Lipase/Protease 12,000 Unit Cap.CR PO SCH ×3 (09:41→21:42)
[2021-04-13] MEDS: Bisacodyl 5 MG Tab PO SCH ×2 (09:41→21:42)
[2021-04-13] MEDS: Docusate Sodium 100 MG Cap PO SCH ×2 (09:41→21:42)
[2021-04-13] MEDS: Acyclovir 200 MG Cap PO SCH ×3 (09:41→21:42)
[2021-04-13] MEDS: Bisacodyl 10 MG Supp RECTAL SCH ×2 (09:41→21:42)
[2021-04-13] MEDS: Pantoprazole 40 MG Vial IVPUSH SCH (13:41)
[2021-04-13] MEDS: Tamsulosin 0.4 MG Cap.ER PO SCH (21:42)
[2021-04-13] MEDS: Latanoprost 0.005% Ophth Soln 2.5 ML Bottle EYEBOTH SCH (21:43)
[2021-04-14] MEDS: Insulin Lispro 100 Unit/ML 3 ML KwikPen SUBCUT SCH ×4 (04:30→21:35)
[2021-04-14] MEDS: Lactated Ringers 1,000 ML IV SCH (07:22)
[2021-04-14] MEDS ORDERED: Lactated Ringers 1,000 ML IV SCH (08:00)
[2021-04-14] MEDS: Levothyroxine 100 MCG, Levothyroxine 25 MCG PO SCH ×2 (08:03)
[2021-04-14] MEDS: Amylase/Lipase/Protease 12,000 Unit Cap.CR PO SCH ×3 (08:03→17:11)
[2021-04-14] MEDS: Acetaminophen 500 MG Tab PO SCH ×3 (08:03→23:50)
[2021-04-14] MEDS: Docusate Sodium 100 MG Cap PO SCH ×2 (08:04→21:34)
[2021-04-14] MEDS: Acyclovir 200 MG Cap PO SCH ×3 (08:04→21:35)
[2021-04-14] MEDS: Potassium Chloride 20 MEQ Tab.ER PO SCH ×2 (08:04→17:11)
[2021-04-14] MEDS: Bisacodyl 5 MG Tab PO SCH ×2 (08:05→21:33)
[2021-04-14] MEDS: Magnesium Sulfate/Water 2 GM in Premix Bag 1 BAG IV SCH ×3 (08:05→20:00)
[2021-04-14] MEDS ORDERED: Furosemide 20 MG/2 ML VIAL IV ONE (09:00)
[2021-04-14] MEDS ORDERED: Azithromycin 125 MG in Sodium Chloride 0.9% 100 ML IV SCH (09:00)
[2021-04-14] MEDS: HYDROmorphone 2 MG Tab PO PRN (09:33)
[2021-04-14] MEDS: Bisacodyl 10 MG Supp RECTAL SCH ×2 (11:03→21:33)
[2021-04-14] MEDS: Azithromycin 125 MG in Sodium Chloride 0.9% 100 ML IV SCH ×2 (11:08→22:55)
--- NOTE | 2021-04-14 12:14 | PN ---
DATE OF SERVICE: 04/13/2021 SUBJECTIVE: Reji continues to be distended. He is not passing any flatus. Vital signs have been stable. He states he has been up, ambulating, and sitting in the chair. Oral intake 930. Urine output 2950 via Pollack catheter. REVIEW OF SYSTEMS: Remainder of review of systems negative for any pertinent positives and negatives. OBJECTIVE: GENERAL: Reji Li is a pleasant 85-year-old male. He is alert and orientated. VITAL SIGNS: TPR 96.7, 66, 15, blood pressure 171/73. HEENT: Negative. NECK: Supple. HEART: Regular rate and rhythm. LUNGS: Clear. ABDOMEN: Quite distended, firm, minimally tender. EXTREMITIES: Without peripheral edema. ASSESSMENT: 1. Postop ileus. 2. Urinary retention. 3. Exploratory laparotomy with lysis of adhesions. a. Repair of incarcerated incisional hernia with mesh. b. Repair of incarcerated recurrent umbilical hernia. c. Placement of Interceed mesh. POSTOPERATIVE DIAGNOSES: 1. Incarcerated recurrent incisional hernia. 2. Incarcerated recurrent umbilical hernia. 3. Extensive intraabdominal adhesions. 4. Date of procedure: 04/10/2021. Surgeon: Ilan Johnson MD. PLAN: 1. Lasix 20 mg IV now and repeat at 1600. 2. Check CBC, CMP, mag, phos, and BNP in a.m. 3. Check abdominal flat and upright x-rays in a.m. at 0400. 4. Dulcolax suppositories 1 per rectum b.i.d. 5. Continue Pollack catheter due to postop ileus and urinary retention. 6. We will continue ambulation. 7. We will evaluate p.r.n. or in a.m. Meredith Olivier PA-C /[id number]
[2021-04-14] MEDS: Pantoprazole 40 MG Delayed-Release Granules 1 Packet PO SCH (16:15)
[2021-04-14] MEDS: Ondansetron 4 MG Tab.DIS PO PRN (19:59)
[2021-04-14] MEDS: Tamsulosin 0.4 MG Cap.ER PO SCH (21:34)
[2021-04-14] MEDS: Latanoprost 0.005% Ophth Soln 2.5 ML Bottle EYEBOTH SCH (21:35)
[2021-04-15] MEDS: HYDROmorphone 2 MG Tab PO PRN ×3 (02:00→15:19)
[2021-04-15] MEDS: Magnesium Sulfate/Water 2 GM in Premix Bag 1 BAG IV SCH ×4 (02:02→20:38)
[2021-04-15] MEDS: Cyclobenzaprine 10 MG Tab PO PRN (04:38)
[2021-04-15] MEDS: Insulin Lispro 100 Unit/ML 3 ML KwikPen SUBCUT SCH ×2 (04:42→10:45)
[2021-04-15] MEDS ORDERED: Sodium Chloride 0.9% 10 ML Syringe IV PRN (07:32)
[2021-04-15] MEDS: Levothyroxine 100 MCG, Levothyroxine 25 MCG PO SCH ×2 (07:33)
[2021-04-15] MEDS: Amylase/Lipase/Protease 12,000 Unit Cap.CR PO SCH ×4 (07:35→17:20)
[2021-04-15] MEDS: Acetaminophen 500 MG Tab PO SCH ×3 (07:44→23:28)
[2021-04-15] MEDS: Acyclovir 200 MG Cap PO SCH ×3 (09:29→20:50)
[2021-04-15] MEDS: Docusate Sodium 100 MG Cap PO SCH ×2 (09:29→20:51)
[2021-04-15] MEDS: Azithromycin 125 MG in Sodium Chloride 0.9% 100 ML IV SCH ×2 (11:14→22:43)
--- NOTE | 2021-04-15 12:41 | OR ---
DATE OF PROCEDURE: 04/10/2021 SURGEON: Ilan Johnson MD PREOPERATIVE DIAGNOSIS: Recurrent incisional hernia. POSTOPERATIVE DIAGNOSES: 1. Incarcerated recurrent incisional hernia. 2. Incarcerated recurrent umbilical hernia. 3. Extensive intraperitoneal adhesions. PROCEDURES PERFORMED: Exploratory laparotomy with lysis of adhesions and: 1. Repair of recurrent incarcerated incisional hernia with mesh (90473, [id number]). 2. Repair of incarcerated recurrent umbilical hernia (84653). 3. Placement of Interceed mesh x2 to displace pelvic and abdominal wall from underlying viscera to limit recurrent adhesion formation (76135). ANESTHESIA: General. DRAGGER: Meredith Olivier PA-C INDICATIONS FOR PROCEDURE: This is an 85-year-old male presenting with increasingly symptomatic hernia involvement of the abdominal wall. This patient is status post previous Whipple procedure with long-term good results and has an elongated hernia along the previous subcostal incision on the right side. This extends essentially to the midline with a focal area of hernia at that level in a broad area more laterally. There are also 2 intersecting incisions far lateral that probably have some abdominal wall that is and the muscle somewhat protuberant on that basis. The plan is to proceed with exploratory laparotomy with lysis of adhesions and repair of the hernia with mesh. Potential risks of the procedure including bleeding, infection, injury to underlying viscera, problems with the mesh becoming infected or the hernia recurring were all reviewed along with the remote possibility of cardiopulmonary, septic, or hemorrhagic complications leading to were discussed, and the patient wishes to proceed. DETAILS OF PROCEDURE: The patient was taken to the operating room and placed in the supine position. After general endotracheal anesthesia was induced, a Pollack catheter was inserted and the abdomen prepped and draped. The incision over the area of hernia was then made through the skin, subcutaneous tissue, and down onto the hernia sac. This again was primarily a transversely oriented incision with a gradual superior extension from lateral to medial consistent with the previous subcostal incision used for the Whipple procedure. This was carried down through the skin, subcutaneous tissue, and down to the hernia sac. The hernia sac was resected circumferentially down to the level of the fascia. The hernia was then opened. It was noted to have some incarcerated component within it consisting of some omental adhesions and transverse colon as well as some focal points of small bowel. These were all dissected free and the hernia sac then excised. The patient was noted to have an additional incarcerated umbilical hernia. This had also previously been repaired, and this contained a tongue of omentum incarcerated within it, and this was excised. The umbilical hernia was repaired primarily from within as including that with the mesh used for the subsequent incisional hernia would require an extremely large mesh placement which was felt to be necessary. The umbilical hernia was then fixed from within using a [id number] stitch of #2 Vicryl stitch. Once the incisional hernia was excised, some additional adhesions were taken down in all directions, and a Ventrio ST hernia patch measuring 15.5 x 25.7 cm was selected. At 5 cm intervals along its circumference, five 2-0 Vicryl sutures were placed on the polypropylene side of the mesh. The mesh was soaked in antibiotic-containing saline solution. Stab wounds had been placed where the sutures would be pulled up, thus fixing the mesh in position well away from the fascial edges. The medial half of the sutures were then placed and pulled up and the underlying . Two Interceed meshes were placed underneath the incision, and from there, down toward the pelvis to limit recurrent adhesion formation. The remaining sutures were then pulled up, thus fixing the mesh in general position. The long axis of the mesh was in the generally transverse orientation of the primary incision. The underlying shelf was then fixated overlying the abdominal wall with titanium tacking screws circumferentially. At that point, the fascia over the mesh was approximated with a #2 Vicryl stitch, subcutaneous tissue with 2 layers of 3-0 and 4-0 Vicryl stitch, the skin with stephen, and a dressing applied. Prior to closure, bilateral transversus abdominis plane blocks were placed, and the incision itself was anesthetized with 1% lidocaine mixed with Marcaine. The patient was taken to the recovery room in satisfactory condition. Physician professional nursing assistant, Meredith Olivier, played an essential role in assisting in this case, helping to position the patient, retract structures as needed, as well as suturing and cutting sutures when indicated. Her presence improved the patient's safety and decreased the operative time. Ilan Johnson MD /[id number]
[2021-04-15] MEDS: Pantoprazole 40 MG Delayed-Release Granules 1 Packet PO SCH (16:50)
--- NOTE | 2021-04-15 16:59 | PN ---
DATE OF SERVICE: 04/15/2021 The patient has been afebrile with stable vital signs. Oral intake was fairly good at around 2300, and we will saline lock his IV today. He has moved his bowels several times and his abdomen is distinctly less distended. We will go up to a regular diet today. I think we can discontinue the Accu-Cheks. They have all been in the very normal range and recheck some labs in the morning. He maybe ready for discharge home tomorrow. Ilan Johnson MD /[id number]
--- NOTE | 2021-04-15 18:50 | PN ---
DATE OF SERVICE: 04/14/2021 The patient is having some flatus, but no bowel movement as of yet receive the Dulcolax suppositories and Colace. He is not taking much in way of pain medication and we will switch over to oral Dilaudid today. His magnesium is somewhat low and we will supplement that starting today. I think we will add Zithromax 125 mg IV q.12 hours to augment GI tract motility. Otherwise, begin a full liquid diet. We will give him a single dose of Lasix this morning and he need to maximize activity and work with pulmonary toilet. Ilan Johnson MD /[id number]
[2021-04-15] MEDS: Tamsulosin 0.4 MG Cap.ER PO SCH (20:51)
[2021-04-15] MEDS: Latanoprost 0.005% Ophth Soln 2.5 ML Bottle EYEBOTH SCH (20:52)
[2021-04-16] MEDS: Magnesium Sulfate/Water 2 GM in Premix Bag 1 BAG IV SCH (01:26)
[2021-04-16 07:06] VITALS: BP 146/73; PULSE 65
[2021-04-16] MEDS: Levothyroxine 100 MCG, Levothyroxine 25 MCG PO SCH ×2 (07:20)
[2021-04-16] MEDS: Amylase/Lipase/Protease 12,000 Unit Cap.CR PO SCH (07:21)
[2021-04-16] MEDS: Acetaminophen 500 MG Tab PO SCH (07:21)
--- NOTE | 2021-04-16 08:32 | DISCH ---
ADMISSION DIAGNOSES: 1. Exploratory laparotomy with lysis of adhesions. 2. Repair of recurrent incarcerated incisional hernia with mesh. 3. Repair of incarcerated recurrent umbilical hernia. 4. Placement of Interceed mesh x2 to displace pelvic and abdominal wall from underlining viscera to limit recurrent adhesion formation. POSTOPERATIVE DIAGNOSES: 1. Incarcerated recurrent incisional hernia. 2. Incarcerated recurrent umbilical hernia. 3. Extensive intraabdominal adhesions. 4. Date of procedure: 04/10/2021. Surgeon: Ilan Johnson MD. HISTORY: Reji Li is an 85-year-old male, presenting with increasing symptomatic hernia involved with abdominal wall. After preoperative evaluation and discussion of possible risks and possible complications, he wished to proceed with surgical procedure. HOSPITAL COURSE: Reji had his surgery on 04/10/2021. He had no operative complications. On postoperative day #1, he started to develop an ileus and it did progress. He also had a history of urinary retention and the Pollack catheter was left in. He did not have a bowel movement until starting Zithromax IV on 04/14/2021. Then, he did have 5 bowel movements. He was given Lasix and potassium was replaced based on his urinary output. Blood sugars remained within normal limits and were treated according to Accu-Cheks. On 04/15, Reji has been up, ambulating. Vital signs have been stable. He has had a bowel movement. Ileus has resolved. Abdomen is less swollen and tender, and oral intake was 1156, output 2800. Reji was able to be discharged to home on 04/16/2021 without any complications. PHYSICAL EXAMINATION: GENERAL: Reji is a pleasant 85-year-old male. VITAL SIGNS: Height is 5 feet 10.87 inches, weight is 155 pounds. TPR 96.8, 65, 18, blood pressure 146/73. HEENT: Negative. NECK: Supple. HEART: Regular rate and rhythm. LUNGS: Clear. ABDOMEN: Aquacel dressings on, dry and intact. Abdominal binder is on. EXTREMITIES: Without peripheral edema. DISPOSITION: Discharged to home. His daughter will be there to help take care of him and his . Referral to Ilan Johnson MD, 04/25/2021 at 10:15 a.m. HOME MEDICATIONS: As he took prior to admission including Xalatan 1 drop to each eye at bedtime, Valtrex 1000 mg p.o. t.i.d., Flomax 0.4 mg p.o. daily, Tradjenta 5 mg p.o. daily, levothyroxine 112 mcg daily, diphenoxylate atropine 1 tablet p.o. b.i.d., Creon 12,000 units 3 capsules p.o. t.i.d., and acetaminophen with codeine 1 tablet every 6 hours p.r.n. pain, Tylenol Extra Strength 1000 mg p.o. q.8 hours. DIET: Regular diet as tolerated. Drink 8 to 10 glasses of water a day. ACTIVITY: No lifting greater than 10 pounds for 6 weeks. Driving: Do not drive for 1 week. DISCHARGE INSTRUCTIONS: Shower/bathing: May shower. Keep operative site clean and dry. Take off Aquacel dressing on , 04/19/2021. Wear abdominal binder with pressure dressing over hernia site for about 6 weeks. Notify provider if any fever, increased pain, swelling, redness, drainage, nausea, vomiting. OTHER INSTRUCTION: Use incentive spirometer 10 times every hour while awake. /[id number]
[2021-04-16] MEDS: Docusate Sodium 100 MG Cap PO SCH (09:19)
[2021-04-16] MEDS: Acyclovir 200 MG Cap PO SCH (09:19)
[2021-04-16] MEDS: Ondansetron 4 MG Tab.DIS PO PRN (09:21)
--- NOTE | 2021-04-16 09:40 | CR ---
Abdomen 2V AP Flat Upright CLINICAL HISTORY: Postoperative ileus FINDINGS: There appears be a tiny amount of residual free air under the right hemidiaphragm. Small intestinal gas pattern is nonacute. There is moderate fecal retention. Patient has had previous ventral hernia repair IMPRESSION: Moderate fecal retention Status post recent abdominal surgery
== END 2021-04-16 09:40 | disposition home or self-care (01) | DRG 336 ==
LOC: JP.SDS 07:06 → JP.SDSSCHI 11:45 → JP.MS 12:00 → EDSTATUS 12:45
PROVIDERS: ADMIT Surgery; ATTEND Surgery
PROC: 0WQF0ZZ Repair Abdominal Wall, Open Approach (ICD-10-PCS; principal; 2021-04-10)
PROC: 0DNW0ZZ Release Peritoneum, Open Approach (ICD-10-PCS; 2021-04-10)
PROC: 0WUF0JZ Supplement Abdominal Wall with Synthetic Substitute, Open Approach (ICD-10-PCS; 2021-04-10)
PROC: 3E0M05Z Introduction of Adhesion Barrier into Peritoneal Cavity, Open Approach (ICD-10-PCS; 2021-04-10)
DX: K43.0 Incisional hernia with obstruction, without gangrene (principal); K90.81 Whipple's disease; K56.7 Ileus, unspecified; K66.0 Peritoneal adhesions (postprocedural) (postinfection); K42.0 Umbilical hernia with obstruction, without gangrene; E03.9 Hypothyroidism, unspecified; E11.9 Type 2 diabetes mellitus without complications; K52.9 Noninfective gastroenteritis and colitis, unspecified; K21.9 Gastro-esophageal reflux disease without esophagitis; E83.42 Hypomagnesemia; J44.9 Chronic obstructive pulmonary disease, unspecified; E78.5 Hyperlipidemia, unspecified; H40.9 Unspecified glaucoma; M54.5 Low back pain; R33.9 Retention of urine, unspecified; Z88.0 Allergy status to penicillin; Z85.46 Personal history of malignant neoplasm of prostate; Z90.49 Acquired absence of other specified parts of digestive tract; Z98.890 Other specified postprocedural states; Z79.890 Hormone replacement therapy
CPT/HCPCS: 36415; 74019; 74019-26; 80053; 82947; 83735; 83880; 84100; 85025; 85027; 88302; 93005; 94762; 97110-GP; 97161-GP; 97530-GP; 97535-GP; A9270-GY; C1713; C1781; C9113; J0171; J0330; J0456; J0690; J1100; J1170; J1815; J1940; J2020; J2185; J2405; J2704; J2710; J2765; J2795; J3010; J3411; J3475; J3490; J7120; J7121

== ENCOUNTER 2022-09-30 11:48 | Emergency (ER) | payer MEDICARE ==
[2022-09-30 12:05] VITALS: BP 120/69; PULSE 76
== END 2022-09-30 14:38 | disposition home or self-care (01) ==
LOC: JP.ED 11:48
DX: J18.9 Pneumonia, unspecified organism (principal); E11.9 Type 2 diabetes mellitus without complications; E03.9 Hypothyroidism, unspecified; Z88.0 Allergy status to penicillin; Z79.899 Other long term (current) drug therapy
CPT/HCPCS: 36415; 71046; 80048; 81001; 83605; 83690; 85025; 99283

== ENCOUNTER 2022-10-02 13:01 | Observation (INO) | payer MEDICARE ==
[2022-10-02] MEDS ORDERED: OLANZapine 5 MG Tab PO ONE (14:19)
[2022-10-02 15:57] LABS: CORONAVIRUS COVID-19 NAA NEGATIVE (NEGATIVE)
[2022-10-02] MEDS ORDERED: Sodium Chloride 0.9% 10 ML Syringe FLUSH PRN (16:26)
[2022-10-02] MEDS: Acetaminophen 500 MG Tab PO SCH ×2 (17:00→21:15)
[2022-10-02] MEDS: Sodium Chloride 0.9% 1,000 ML IV SCH (19:22)
[2022-10-02] MEDS ORDERED: Acetaminophen/Codeine 300-30 MG Tab PO PRN (19:32)
[2022-10-02] MEDS ORDERED: Amylase/Lipase/Protease 12,000 Unit Cap.CR PO SCH (21:00)
[2022-10-02] MEDS ORDERED: Latanoprost 0.005% Ophth Soln 2.5 ML Bottle EYEBOTH SCH ×2 (21:00)
[2022-10-02] MEDS: TRIAMCINOLONE ACETONIDE 0.5% TOP SCH (21:13)
[2022-10-02] MEDS: LIPASE PO SCH (21:14)
[2022-10-02] MEDS: AMYLASE PO SCH (21:14)
[2022-10-02] MEDS: PROTEASE PO SCH (21:14)
[2022-10-03] MEDS: Sodium Chloride 0.9% 1,000 ML IV SCH (02:56)
[2022-10-03 04:57] LABS: ESTIMATED GFR 83 mL/min (>60)
[2022-10-03] MEDS: Acetaminophen 500 MG Tab PO SCH ×2 (06:15→14:11)
[2022-10-03] MEDS ORDERED: LEVOTHYROXINE PO SCH (07:30)
[2022-10-03] MEDS: AMYLASE PO SCH ×2 (08:48→14:11)
[2022-10-03] MEDS: LIPASE PO SCH ×2 (08:48→14:11)
[2022-10-03] MEDS: PROTEASE PO SCH ×2 (08:48→14:11)
[2022-10-03] MEDS: TRIAMCINOLONE ACETONIDE 0.5% TOP SCH (08:50)
[2022-10-03] MEDS ORDERED: TAMSULOSIN 0.4 MG PO SCH (09:00)
[2022-10-03] MEDS ORDERED: LINAGLIPTIN 5 MG PO SCH (09:00)
[2022-10-03 11:16] VITALS: BP 117/50; PULSE 57
== END 2022-10-03 16:20 | disposition home or self-care (01) ==
LOC: JP.ED 13:01 → JP.MS 16:26
PROVIDERS: ADMIT Internal Medicine; ATTEND Internal Medicine
DX: R41.0 Disorientation, unspecified (principal); E03.9 Hypothyroidism, unspecified; E11.9 Type 2 diabetes mellitus without complications; K90.81 Whipple's disease; J44.9 Chronic obstructive pulmonary disease, unspecified; H40.9 Unspecified glaucoma; L10.0 Pemphigus vulgaris; F32.A Depression, unspecified; F17.210 Nicotine dependence, cigarettes, uncomplicated; G89.29 Other chronic pain; M54.9 Dorsalgia, unspecified; I65.23 Occlusion and stenosis of bilateral carotid arteries; Z79.899 Other long term (current) drug therapy; Z85.46 Personal history of malignant neoplasm of prostate; Z79.890 Hormone replacement therapy; Z20.822 Contact with and (suspected) exposure to COVID-19; Z88.0 Allergy status to penicillin
CPT/HCPCS: 0241U; 36415; 71045; 80053; 80076; 80305; 80307; 81001; 82140; 82803; 82947; 84443; 85025; 93880; 96360; 96361; 99285; A9270; G0378; J7030

== ENCOUNTER 2023-01-06 06:21 | Inpatient (IN) | payer MEDICARE ==
[2023-01-06 07:25] LABS: ESTIMATED GFR 73 mL/min (>60)
[2023-01-06] MEDS: Nozin Nasal Sanitizer NASBOTH SCH ×2 (07:26→20:45)
[2023-01-06] MEDS ORDERED: Dexamethasone 4 MG/ML SDV ONE (08:28)
[2023-01-06] MEDS ORDERED: Succinylcholine 200 MG/10 ML MDV ONE (08:28)
[2023-01-06] MEDS ORDERED: fentaNYL 250 MCG/5 ML SDV ONE (08:28)
[2023-01-06] MEDS ORDERED: Propofol 200 MG/20 ML SDV ONE (08:28)
[2023-01-06] MEDS ORDERED: Neostigmine Methylsulfate 1 MG/ML 5 ML Syringe ONE (08:28)
[2023-01-06] MEDS ORDERED: Rocuronium 50 MG/5 ML Vial ONE (08:28)
[2023-01-06] MEDS ORDERED: Glycopyrrolate 0.2 MG/ML 5 ML MDV ONE (08:28)
[2023-01-06] MEDS ORDERED: Ondansetron 4 MG/2 ML SDV ONE (08:28)
[2023-01-06] MEDS ORDERED: Bupivacaine 0.5% 50 ML MDV ONE (08:50)
[2023-01-06] MEDS ORDERED: Lactated Ringers 1,000 ML IV SCH (09:00)
[2023-01-06] MEDS ORDERED: Nozin Nasal Sanitizer NASBOTH SCH (09:00)
[2023-01-06] MEDS ORDERED: Atropine/Diphenoxylate 0.025-2.5 MG Tab PO PRN (09:15)
[2023-01-06] MEDS ORDERED: ceFAZolin 1 GM Vial ONE (09:26)
[2023-01-06] MEDS ORDERED: Bupivacaine 0.5% 30 ML SDV ONE (09:34)
[2023-01-06] MEDS ORDERED: ePHEDrine 50 MG/ML SDV ONE (09:47)
[2023-01-06] MEDS ORDERED: Morphine 2 MG/ML SYRINGE IVPUSH PRN (11:10)
[2023-01-06] MEDS ORDERED: Midazolam 1 MG/ML 2 ML SDV ONE (12:10)
[2023-01-06] MEDS ORDERED: Lactated Ringers 1,000 ML ONE (12:13)
[2023-01-06] MEDS: Acetaminophen 325 MG Tab PO SCH ×2 (14:04→20:45)
[2023-01-06] MEDS: Amylase/Lipase/Protease 12,000 Unit Cap.CR PO SCH ×2 (14:04→20:46)
[2023-01-06] MEDS: ceFAZolin 1 GM in Premix Bag 1 BAG IV SCH (16:11)
[2023-01-06] MEDS: Sodium Chloride 0.9% 1,000 ML IV SCH (17:42)
[2023-01-06] MEDS ORDERED: Benzocaine/Cetylpyridinium/Menthol Lozenge MUCMEM PRN (19:22)
[2023-01-06] MEDS: Tamsulosin 0.4 MG Cap.ER PO SCH (20:46)
[2023-01-06] MEDS: Latanoprost 0.005% Ophth Soln 2.5 ML Bottle EYEBOTH SCH (20:47)
[2023-01-06] MEDS: Triamcinolone Acetonide 0.1% Crm 15 GM Tube TOP SCH (20:47)
[2023-01-07] MEDS: ceFAZolin 1 GM in Premix Bag 1 BAG IV SCH (00:31)
[2023-01-07] MEDS: Acetaminophen 325 MG Tab PO SCH ×4 (01:42→20:00)
[2023-01-07] MEDS: Sodium Chloride 0.9% 1,000 ML IV SCH (01:49)
[2023-01-07] MEDS: Levothyroxine 100 MCG Tab PO SCH (07:32)
[2023-01-07] MEDS: Levothyroxine 25 MCG Tab PO SCH (07:32)
[2023-01-07] MEDS: Amylase/Lipase/Protease 12,000 Unit Cap.CR PO SCH ×3 (09:23→20:01)
[2023-01-07] MEDS: Nozin Nasal Sanitizer NASBOTH SCH ×2 (09:23→20:01)
[2023-01-07] MEDS: Aspirin 325 MG Tab.EC PO SCH (09:24)
[2023-01-07] MEDS: Tamsulosin 0.4 MG Cap.ER PO SCH ×2 (09:24→20:02)
[2023-01-07] MEDS: Triamcinolone Acetonide 0.1% Crm 15 GM Tube TOP SCH ×2 (09:47→20:02)
[2023-01-07] MEDS: oxyCODONE 5 MG Tab PO PRN ×2 (15:16→21:25)
[2023-01-07] MEDS: Latanoprost 0.005% Ophth Soln 2.5 ML Bottle EYEBOTH SCH (20:02)
[2023-01-08] MEDS: Acetaminophen 325 MG Tab PO SCH ×4 (01:26→20:06)
[2023-01-08] MEDS: oxyCODONE 5 MG Tab PO PRN ×2 (03:31→13:09)
[2023-01-08] MEDS: Docusate Sodium 100 MG Cap PO PRN ×2 (03:31→13:09)
[2023-01-08] MEDS: Levothyroxine 100 MCG Tab PO SCH (07:29)
[2023-01-08] MEDS: Levothyroxine 25 MCG Tab PO SCH (07:30)
[2023-01-08] MEDS: Nozin Nasal Sanitizer NASBOTH SCH ×2 (09:37→21:20)
[2023-01-08] MEDS: Amylase/Lipase/Protease 12,000 Unit Cap.CR PO SCH ×3 (09:38→21:21)
[2023-01-08] MEDS: Aspirin 325 MG Tab.EC PO SCH (09:39)
[2023-01-08] MEDS: Tamsulosin 0.4 MG Cap.ER PO SCH ×2 (09:40→21:21)
[2023-01-08] MEDS: Triamcinolone Acetonide 0.1% Crm 15 GM Tube TOP SCH ×2 (09:43→21:18)
[2023-01-08] MEDS: Magnesium Hydroxide 400 MG/5 ML Susp 30 ML Cup PO PRN (18:29)
[2023-01-08] MEDS: Latanoprost 0.005% Ophth Soln 2.5 ML Bottle EYEBOTH SCH (21:21)
[2023-01-09] MEDS: Acetaminophen 325 MG Tab PO SCH ×2 (02:29→07:34)
[2023-01-09] MEDS: oxyCODONE 5 MG Tab PO PRN (02:32)
[2023-01-09] MEDS: Levothyroxine 100 MCG Tab PO SCH (07:35)
[2023-01-09] MEDS: Levothyroxine 25 MCG Tab PO SCH (07:35)
[2023-01-09] MEDS: Nozin Nasal Sanitizer NASBOTH SCH (08:14)
[2023-01-09] MEDS: Magnesium Hydroxide 400 MG/5 ML Susp 30 ML Cup PO PRN (08:19)
[2023-01-09] MEDS: Amylase/Lipase/Protease 12,000 Unit Cap.CR PO SCH (08:19)
[2023-01-09] MEDS: Aspirin 325 MG Tab.EC PO SCH (08:20)
[2023-01-09] MEDS: Tamsulosin 0.4 MG Cap.ER PO SCH (08:20)
[2023-01-09] MEDS: Docusate Sodium 100 MG Cap PO PRN (08:20)
[2023-01-09] MEDS: Triamcinolone Acetonide 0.1% Crm 15 GM Tube TOP SCH (08:21)
[2023-01-09] MEDS ORDERED: Bisacodyl 10 MG Supp RECTAL ONE (09:30)
[2023-01-09 10:54] VITALS: BP 114/56; PULSE 65
[2023-01-10] MEDS ORDERED: Acyclovir 200 MG Cap PO SCH (09:00)
== END 2023-01-09 13:10 | DRG 483 ==
LOC: JP.SDS 06:21 → JP.MS 08:59 → JP.SDS 15:30 → JP.MS 15:48
PROVIDERS: ADMIT Specialist; ATTEND Specialist
PROC: 0RRJ00Z Replacement of Right Shoulder Joint with Reverse Ball and Socket Synthetic Substitute, Open Approach (ICD-10-PCS; principal; 2023-01-06)
DX: M75.101 Unspecified rotator cuff tear or rupture of right shoulder, not specified as traumatic (principal); E03.9 Hypothyroidism, unspecified; E11.9 Type 2 diabetes mellitus without complications; Z85.46 Personal history of malignant neoplasm of prostate; Z88.0 Allergy status to penicillin; Z98.890 Other specified postprocedural states; Z90.49 Acquired absence of other specified parts of digestive tract
CPT/HCPCS: 36415; 73020-26-RT; 73020-RT; 80053; 82947; 85027; 97110-GO; 97116-GP; 97163-GP; 97165-GO; 97530-GP; 97535-GO; 97760-GO; A9270-GY; C1713; C1776; J0330; J0690; J1100; J2250; J2405; J2704; J2710; J3010; J3490; J7030; J7120; U0002

== ENCOUNTER 2024-08-26 18:05 | Inpatient (IN) | payer MEDICARE ==
[2024-08-26 18:19] LABS: BASOPHILS ABSOLUTE AUTO 0.01 K/uL (0.00-0.10); BASOPHILS PERCENT AUTO 0.1 % (0.1-1.3); EOSINOPHILS ABSOLUTE AUTO 0.05 K/uL (0.00-0.40); EOSINOPHILS PERCENT AUTO 0.4 % (0.0-5.4); HEMATOCRIT 41.1 % (38.4-49.7); IMMATURE GRAN ABSOLUTE AUTO 0.07 K/uL (0.00-0.23); IMMATURE GRAN PERCENT AUTO 0.6 % (0.0-0.7); LYMPHOCYTES ABSOLUTE AUTO 0.85 K/uL (0.8-3.3); LYMPHOCYTES PERCENT AUTO 6.7 % (11.4-47.7); MEAN CORPUSCULAR HEMOGLOBIN 30.2 pg (31.6-35.5); MEAN CORPUSCULAR HGB CONC 34.1 g/dL (31.6-35.5); MEAN CORPUSCULAR VOLUME 88.8 fL (81.4-99.0); MONOCYTES ABSOLUTE AUTO 0.96 K/uL (0.20-0.90); MONOCYTES PERCENT AUTO 7.6 % (3.3-12.6); NEUTROPHILS PERCENT AUTO 84.6 % (40.0-78.1); PLATELET COUNT,PLT 247 K/uL (130-375); RED BLOOD CELL COUNT 4.63 M/uL (4.14-5.76); WHITE BLOOD CELL COUNT,WBC 12.6 K/uL (3.2-11.0)
[2024-08-26 18:41] LABS: APPEARANCE,URINE CLEAR (CLEAR); BILIRUBIN,URINE NEGATIVE (NEGATIVE); COLOR,URINE YELLOW (YELLOW); GLUCOSE,URINE NEGATIVE (NEGATIVE); KETONES,URINE NEGATIVE (NEGATIVE); LEUKOCYTE ESTERASE,URINE NEGATIVE (NEGATIVE); NITRITE,URINE NEGATIVE (NEGATIVE); OCCULT BLOOD,URINE TRACE-INTACT (NEGATIVE); PH,URINE 6.5 (5.0-8.0); PROTEIN,URINE TRACE mg/dL (NEGATIVE); UROBILINOGEN,URINE 0.2 EU/dL (0.2-1.0)
[2024-08-26 18:46] LABS: AMORPHOUS SEDIMENT,URINE NOT SEEN; BACTERIA,URINE FEW; EPITHELIAL CELLS,URINE NOT SEEN; MUCUS,URINE NOT SEEN; RBC,URINE 0-5 (0-5); WBC,URINE 0-5 (0-5)
[2024-08-26 18:48] LABS: ALANINE AMINOTRANSFERASE,ALT 73 U/L (12-78); ALBUMIN 3.6 g/dL (3.4-5.0); ALKALINE PHOSPHATASE 116 U/L (46-116); ANION GAP 11.5 mmol/L (5.0-14.0); ASPARTATE AMNIOTRANSFERASE,AST 33 U/L (15-37); BLOOD UREA NITROGEN,BUN 7 mg/dL (7-18); CALCIUM 9.3 mg/dL (8.5-10.1); CARBON DIOXIDE,CO2 31 mmol/L (21-32); CHLORIDE,CL 98 mmol/L (100-108); EST CRCL DRUG DOSING (CG) 40.62 mL/min; ESTIMATED GFR 72 mL/min (>60); GLUCOSE RANDOM 122 mg/dL (74-106); MAGNESIUM 1.4 mg/dL (1.8-2.4); POTASSIUM,K 3.5 mmol/L (3.6-5.2); PROTEIN TOTAL,TP 7.2 g/dL (6.4-8.2); SODIUM,NA 137 mmol/L (140-148)
[2024-08-26] MEDS: methylPREDNISolone Sodium Succinate 40 MG/1 ML SDV IVPUSH ONE (19:20)
[2024-08-26] MEDS ORDERED: ACYCLOVIR 400 MG PO SCH (20:15)
[2024-08-26] MEDS: Tamsulosin 0.4 MG Cap.ER PO SCH (22:15)
[2024-08-26] MEDS: predniSONE 20 MG Tab PO SCH (22:15)
[2024-08-27] MEDS: traMADol 50 MG Tab PO PRN (00:19)
[2024-08-27 05:20] LABS: BASOPHILS PERCENT AUTO 0.1 % (0.1-1.3); HEMATOCRIT 34.6 % (38.4-49.7); HEMOGLOBIN 12.1 g/dL (12.9-16.9); IMMATURE GRAN ABSOLUTE AUTO 0.05 K/uL (0.00-0.23); IMMATURE GRAN PERCENT AUTO 0.6 % (0.0-0.7); LYMPHOCYTES ABSOLUTE AUTO 0.46 K/uL (0.8-3.3); LYMPHOCYTES PERCENT AUTO 5.5 % (11.4-47.7); MEAN CORPUSCULAR HEMOGLOBIN 30.3 pg (31.6-35.5); MEAN CORPUSCULAR VOLUME 86.5 fL (81.4-99.0); MONOCYTES ABSOLUTE AUTO 0.23 K/uL (0.20-0.90); MONOCYTES PERCENT AUTO 2.8 % (3.3-12.6); PLATELET COUNT,PLT 200 K/uL (130-375); WHITE BLOOD CELL COUNT,WBC 8.4 K/uL (3.2-11.0)
[2024-08-27 05:22] LABS: BASOPHILS ABSOLUTE AUTO 0.01 K/uL (0.00-0.10)
[2024-08-27 05:39] LABS: ALANINE AMINOTRANSFERASE,ALT 53 U/L (12-78); ALBUMIN 2.8 g/dL (3.4-5.0); ALKALINE PHOSPHATASE 93 U/L (46-116); ASPARTATE AMNIOTRANSFERASE,AST 24 U/L (15-37); BILIRUBIN TOTAL 1.7 mg/dL (0.2-1.0); BLOOD UREA NITROGEN,BUN 9 mg/dL (7-18); CALCIUM 8.6 mg/dL (8.5-10.1); CARBON DIOXIDE,CO2 28 mmol/L (21-32); CHLORIDE,CL 99 mmol/L (100-108); EST CRCL DRUG DOSING (CG) 40.43 mL/min; ESTIMATED GFR 72 mL/min (>60); GLUCOSE RANDOM 188 mg/dL (74-106); POTASSIUM,K 3.1 mmol/L (3.6-5.2); PROTEIN TOTAL,TP 5.7 g/dL (6.4-8.2); SODIUM,NA 134 mmol/L (140-148)
[2024-08-27 05:40] LABS: ANION GAP 10.1 mmol/L (5.0-14.0)
[2024-08-27] MEDS ORDERED: Non-Formulary Medication 1 Each (Levothyroxine [Levothyroxine] 125 MCG Tablet) PO SCH (07:30)
[2024-08-27] MEDS: Levothyroxine 100 MCG Tab PO SCH (08:33)
[2024-08-27] MEDS: Levothyroxine 25 MCG Tab PO SCH (08:33)
[2024-08-27] MEDS ORDERED: 50% Dextrose in Water 50 ML Syringe IVPUSH PRN (16:36)
[2024-08-27] MEDS ORDERED: Glucagon,Human Recombinant 1 MG Vial IM PRN (16:36)
[2024-08-27] MEDS: metFORMIN 500 MG Tab PO SCH (17:13)
[2024-08-27] MEDS: Insulin Lispro 100 Unit/ML 3 ML KwikPen SUBCUT SCH (17:14)
[2024-08-27] MEDS: Latanoprost 0.005% Ophth Soln 2.5 ML Bottle EYEBOTH SCH (22:02)
[2024-08-27] MEDS: Potassium Chloride 20 MEQ Tab.ER PO SCH (22:13)
[2024-08-28 07:14] LABS: CALCIUM 8.7 mg/dL (8.5-10.1); CREATININE 1.2 mg/dL (0.8-1.3); EST CRCL DRUG DOSING (CG) 34.34 mL/min; POTASSIUM,K 3.6 mmol/L (3.6-5.2)
[2024-08-28 07:23] LABS: ANION GAP 12.6 mmol/L (5.0-14.0)
[2024-08-28] MEDS: Fludrocortisone 0.1 MG Tab PO SCH (08:57)
[2024-08-28] MEDS: predniSONE 20 MG Tab PO SCH (20:27)
[2024-08-29] MEDS: Insulin Glargine,Human Rec. Analog 100 Units/ML 3 ML Pen SUBCUT SCH (08:27)
[2024-08-29] MEDS: predniSONE 5 MG Tab PO ONE (13:49)
[2024-08-29] MEDS ORDERED: predniSONE 20 MG Tab PO ONE (14:00)
[2024-08-30] MEDS: Insulin Glargine,Human Rec. Analog 100 Units/ML 3 ML Pen SUBCUT SCH ×2 (09:44→09:46)
[2024-08-31] MEDS: Acetaminophen 500 MG Tab PO PRN (06:33)
[2024-08-31] MEDS: Latanoprost 0.005% Ophth Soln 2.5 ML Bottle EYEBOTH SCH (21:37)
[2024-09-01] MEDS ORDERED: Sodium Chloride 0.9% 10 ML Syringe IV PRN (09:41)
[2024-09-01 11:20] VITALS: BP 121/59; PULSE 86
== END 2024-09-01 16:55 | disposition critical access hospital (66) | DRG 596 ==
LOC: JP.ED 18:05 → JP.MS 20:03
PROVIDERS: ADMIT Internal Medicine; ATTEND Internal Medicine
DX: L10.0 Pemphigus vulgaris (principal); F19.930 Other psychoactive substance use, unspecified with withdrawal, uncomplicated; R41.0 Disorientation, unspecified; G89.29 Other chronic pain; M54.9 Dorsalgia, unspecified; E11.9 Type 2 diabetes mellitus without complications; E03.9 Hypothyroidism, unspecified; I10 Essential (primary) hypertension; Z66 Do not resuscitate; Z86.16 Personal history of COVID-19; Z98.890 Other specified postprocedural states; K21.9 Gastro-esophageal reflux disease without esophagitis; Z79.1 Long term (current) use of non-steroidal anti-inflammatories (NSAID); Z87.81 Personal history of (healed) traumatic fracture; Z79.899 Other long term (current) drug therapy; Z85.46 Personal history of malignant neoplasm of prostate; Z98.49 Cataract extraction status, unspecified eye; Z87.891 Personal history of nicotine dependence; Z79.60 Long term (current) use of unspecified immunomodulators and immunosuppressants; Z88.0 Allergy status to penicillin; Z91.148 Patient's other noncompliance with medication regimen for other reason
CPT/HCPCS: 36415; 70450; 80053; 81001; 83735; 84443; 85025; 96374; 99285 ×2; J2919; 80048; 82947; 87070; 87205; 97161-GP; 97165-GO; 97530-GP; A9270-GY; J1815; J1815-GY; J7512

== ENCOUNTER 2024-09-23 12:39 | Emergency (ER) | payer MEDICARE, OTHER ==
[2024-09-23 13:25] LABS: BASOPHILS PERCENT AUTO 0.1 % (0.1-1.3); HEMATOCRIT 32.8 % (38.4-49.7); HEMOGLOBIN 11.5 g/dL (12.9-16.9); IMMATURE GRAN ABSOLUTE AUTO 0.07 K/uL (0.00-0.23); IMMATURE GRAN PERCENT AUTO 0.6 % (0.0-0.7); LYMPHOCYTES ABSOLUTE AUTO 1.09 K/uL (0.8-3.3); LYMPHOCYTES PERCENT AUTO 8.8 % (11.4-47.7); MEAN CORPUSCULAR HEMOGLOBIN 30.9 pg (31.6-35.5); MEAN CORPUSCULAR HGB CONC 35.1 g/dL (31.6-35.5); MEAN CORPUSCULAR VOLUME 88.2 fL (81.4-99.0); MONOCYTES ABSOLUTE AUTO 0.79 K/uL (0.20-0.90); MONOCYTES PERCENT AUTO 6.4 % (3.3-12.6); NEUTROPHILS ABSOLUTE AUTO 10.37 K/uL (1.0-7.6); NEUTROPHILS PERCENT AUTO 84.1 % (40.0-78.1); PLATELET COUNT,PLT 199 K/uL (130-375); RED BLOOD CELL COUNT 3.72 M/uL (4.14-5.76); WHITE BLOOD CELL COUNT,WBC 12.3 K/uL (3.2-11.0)
[2024-09-23 13:30] LABS: BASOPHILS ABSOLUTE AUTO 0.01 K/uL (0.00-0.10)
[2024-09-23 13:45] LABS: ALANINE AMINOTRANSFERASE,ALT 34 U/L (12-78); ALBUMIN 2.4 g/dL (3.4-5.0); ALKALINE PHOSPHATASE 99 U/L (46-116); ASPARTATE AMNIOTRANSFERASE,AST 22 U/L (15-37); BILIRUBIN TOTAL 1.4 mg/dL (0.2-1.0); BLOOD UREA NITROGEN,BUN 19 mg/dL (7-18); CALCIUM 7.1 mg/dL (8.5-10.1); CARBON DIOXIDE,CO2 27 mmol/L (21-32); CHLORIDE,CL 103 mmol/L (100-108); CREATININE 1.1 mg/dL (0.8-1.3); EST CRCL DRUG DOSING (CG) 34.25 mL/min; ESTIMATED GFR 65 mL/min (>60); GLUCOSE RANDOM 183 mg/dL (74-106); PROTEIN TOTAL,TP 4.9 g/dL (6.4-8.2); SODIUM,NA 138 mmol/L (140-148)
[2024-09-23] MEDS: Sodium Chloride 0.9% 1,000 ML IV SCH (13:58)
[2024-09-23 14:01] LABS: ANION GAP 10.8 mmol/L (5.0-14.0)
[2024-09-23 14:02] LABS: POTASSIUM,K 2.8 mmol/L (3.6-5.2)
[2024-09-23] MEDS: fentaNYL 50 MCG/ML SDV IVPUSH ONE (14:51)
[2024-09-23] MEDS: Lidocaine 2% Viscous Solution 15 ML UD PO ONE (14:51)
[2024-09-23] MEDS: Potassium Chloride 20 MEQ Tab.ER PO ONE (14:56)
[2024-09-23] MEDS: Potassium Chloride 10 MEQ in Premix Bag 1 BAG IV ONE (14:58)
[2024-09-23 15:53] LABS: APPEARANCE,URINE CLEAR (CLEAR); BILIRUBIN,URINE NEGATIVE (NEGATIVE); COLOR,URINE YELLOW (YELLOW); GLUCOSE,URINE NEGATIVE (NEGATIVE); KETONES,URINE NEGATIVE (NEGATIVE); LEUKOCYTE ESTERASE,URINE NEGATIVE (NEGATIVE); NITRITE,URINE NEGATIVE (NEGATIVE); OCCULT BLOOD,URINE NEGATIVE (NEGATIVE); PROTEIN,URINE NEGATIVE (NEGATIVE); UROBILINOGEN,URINE 0.2 EU/dL (0.2-1.0)
[2024-09-23 16:00] LABS: AMORPHOUS SEDIMENT,URINE NOT SEEN; BACTERIA,URINE NOT SEEN; EPITHELIAL CELLS,URINE RARE; MUCUS,URINE NOT SEEN; RBC,URINE 0-5 (0-5); WBC,URINE NOT SEEN (0-5)
[2024-09-23 17:26] VITALS: BP 117/75; PULSE 55
== END 2024-09-23 18:43 | disposition home or self-care (01) ==
LOC: JP.ED 12:39
DX: R60.0 Localized edema (principal); L70.0 Acne vulgaris; E87.6 Hypokalemia; E11.9 Type 2 diabetes mellitus without complications; E03.9 Hypothyroidism, unspecified; Z86.16 Personal history of COVID-19; Z87.891 Personal history of nicotine dependence; Z79.899 Other long term (current) drug therapy; Z79.4 Long term (current) use of insulin; Z79.890 Hormone replacement therapy; Z88.0 Allergy status to penicillin
CPT/HCPCS: 36415; 80053; 81001; 85025; 96361; 96365; 96375; 99284; A9270; C1758; J3010; J3480; J7030; 99285

== ENCOUNTER 2024-09-26 16:38 | Inpatient (IN) | payer MEDICARE ==
[2024-09-26] MEDS ORDERED: Glucagon,Human Recombinant 1 MG Vial IM PRN (17:16)
[2024-09-26] MEDS ORDERED: TRIAMCINOLONE ACETONIDE 0.5% TOP PRN (17:16)
[2024-09-26] MEDS ORDERED: 50% Dextrose in Water 50 ML Syringe IVPUSH PRN (17:16)
[2024-09-26] MEDS ORDERED: Silver Sulfadiazine 1% Crm 400 GM Jar TOP PRN (17:16)
[2024-09-26 17:41] LABS: BASOPHILS PERCENT AUTO 0.1 % (0.1-1.3); HEMATOCRIT 31.4 % (38.4-49.7); HEMOGLOBIN 10.7 g/dL (12.9-16.9); IMMATURE GRAN ABSOLUTE AUTO 0.04 K/uL (0.00-0.23); IMMATURE GRAN PERCENT AUTO 0.6 % (0.0-0.7); LYMPHOCYTES PERCENT AUTO 18.1 % (11.4-47.7); MEAN CORPUSCULAR HEMOGLOBIN 30.7 pg (31.6-35.5); MEAN CORPUSCULAR HGB CONC 34.1 g/dL (31.6-35.5); MEAN CORPUSCULAR VOLUME 90.2 fL (81.4-99.0); MONOCYTES ABSOLUTE AUTO 0.73 K/uL (0.20-0.90); MONOCYTES PERCENT AUTO 10.2 % (3.3-12.6); NEUTROPHILS ABSOLUTE AUTO 5.11 K/uL (1.0-7.6); PLATELET COUNT,PLT 218 K/uL (130-375); RED BLOOD CELL COUNT 3.48 M/uL (4.14-5.76); WHITE BLOOD CELL COUNT,WBC 7.2 K/uL (3.2-11.0)
[2024-09-26 17:42] LABS: BASOPHILS ABSOLUTE AUTO 0.01 K/uL (0.00-0.10)
[2024-09-26 18:02] LABS: A/G RATIO 0.9 (1.2-2.2); ALANINE AMINOTRANSFERASE,ALT 29 U/L (12-78); ALBUMIN 2.1 g/dL (3.4-5.0); ALKALINE PHOSPHATASE 91 U/L (46-116); ASPARTATE AMNIOTRANSFERASE,AST 18 U/L (15-37); BILIRUBIN TOTAL 0.9 mg/dL (0.2-1.0); BLOOD UREA NITROGEN,BUN 23 mg/dL (7-18); CALCIUM 7.6 mg/dL (8.5-10.1); CARBON DIOXIDE,CO2 25 mmol/L (21-32); CHLORIDE,CL 107 mmol/L (100-108); CREATININE 1.2 mg/dL (0.8-1.3); EST CRCL DRUG DOSING (CG) 38.68 mL/min; ESTIMATED GFR 58 mL/min (>60); GLUCOSE RANDOM 132 mg/dL (74-106); PROTEIN TOTAL,TP 4.5 g/dL (6.4-8.2); SODIUM,NA 142 mmol/L (140-148)
[2024-09-26 18:04] LABS: ANION GAP 12.5 mmol/L (5.0-14.0); POTASSIUM,K 2.5 mmol/L (3.6-5.2)
[2024-09-26] MEDS: predniSONE 5 MG Tab PO ONE (18:10)
[2024-09-26] MEDS: Potassium Chloride 20 MEQ Tab.ER PO ONE (18:19)
[2024-09-26] MEDS: Potassium Chloride 10 MEQ in Premix Bag 1 BAG IV SCH (18:25)
[2024-09-26] MEDS: Magnesium Oxide 400 MG Tab PO ONE (19:56)
[2024-09-26] MEDS: Magnesium Sulfate/Water Premix 2 GM in Premix Bag 1 BAG IV SCH (19:57)
[2024-09-26] MEDS ORDERED: Insulin Lispro 100 Unit/ML 3 ML KwikPen SUBCUT SCH (20:00)
[2024-09-26] MEDS: Tamsulosin 0.4 MG Cap.ER PO SCH (22:13)
[2024-09-26] MEDS: Latanoprost 0.005% Ophth Soln 2.5 ML Bottle EYEBOTH SCH (22:13)
[2024-09-26] MEDS: Insulin Lispro 100 Unit/ML 3 ML KwikPen SUBCUT SCH (22:16)
[2024-09-27] MEDS ORDERED: Non-Formulary Medication 1 Each (Levothyroxine [Levothyroxine] 125 MCG Tablet) PO SCH (07:30)
[2024-09-27] MEDS: Acyclovir 200 MG Cap PO SCH (09:35)
[2024-09-27] MEDS: Levothyroxine 100 MCG Tab PO SCH (09:36)
[2024-09-27] MEDS: Levothyroxine 25 MCG Tab PO SCH (09:36)
[2024-09-27] MEDS: Potassium Chloride 20 MEQ Tab.ER PO SCH (09:36)
[2024-09-27] MEDS: predniSONE 5 MG Tab PO SCH (09:36)
[2024-09-27] MEDS: Pantoprazole 40 MG Tab.CR PO SCH (09:37)
[2024-09-27] MEDS: metFORMIN 500 MG Tab PO SCH (09:37)
[2024-09-27] MEDS ORDERED: Glucagon,Human Recombinant 1 MG Vial IM PRN (14:43)
[2024-09-27] MEDS ORDERED: 50% Dextrose in Water 50 ML Syringe IVPUSH PRN (14:43)
[2024-09-27] MEDS: Insulin Lispro 100 Unit/ML 3 ML KwikPen SUBCUT SCH (18:00)
[2024-09-28 05:14] VITALS: BP 129/81; PULSE 68
[2024-09-28] MEDS ORDERED: predniSONE 20 MG Tab PO SCH (08:00)
[2024-09-28] MEDS: Potassium Chloride 20 MEQ Tab.ER PO SCH (08:01)
[2024-09-28] MEDS ORDERED: Glucagon,Human Recombinant 1 MG Vial IM PRN (08:04)
[2024-09-28] MEDS ORDERED: 50% Dextrose in Water 50 ML Syringe IVPUSH PRN (08:04)
[2024-09-28] MEDS: Insulin Glargine,Human Rec. Analog 100 Units/ML 3 ML Pen SUBCUT SCH (08:57)
[2024-09-30 21:57] LABS: INSULIN, RANDOM 14 uIU/mL
== END 2024-09-28 09:20 | DRG 596 ==
LOC: JP.MS 16:38
PROVIDERS: ADMIT Internal Medicine; ATTEND Internal Medicine
DX: L10.0 Pemphigus vulgaris (principal); K51.90 Ulcerative colitis, unspecified, without complications; I95.9 Hypotension, unspecified; E87.6 Hypokalemia; H40.9 Unspecified glaucoma; H91.90 Unspecified hearing loss, unspecified ear; R62.7 Adult failure to thrive; K21.9 Gastro-esophageal reflux disease without esophagitis; K52.9 Noninfective gastroenteritis and colitis, unspecified; G89.29 Other chronic pain; M54.9 Dorsalgia, unspecified; F32.A Depression, unspecified; E11.9 Type 2 diabetes mellitus without complications; E03.9 Hypothyroidism, unspecified; G47.00 Insomnia, unspecified; J44.9 Chronic obstructive pulmonary disease, unspecified; Z68.21 Body mass index [BMI] 21.0-21.9, adult; Z88.0 Allergy status to penicillin; Z79.1 Long term (current) use of non-steroidal anti-inflammatories (NSAID); Z79.899 Other long term (current) drug therapy; Z79.84 Long term (current) use of oral hypoglycemic drugs; Z79.4 Long term (current) use of insulin; Z86.16 Personal history of COVID-19; Z87.81 Personal history of (healed) traumatic fracture; Z98.49 Cataract extraction status, unspecified eye; Z98.890 Other specified postprocedural states
CPT/HCPCS: 36415; 80053; 82947; 83525; 83735; 84132; 85025; 97161-GP; 97165-GO; A9270-GY; J1815; J1815-GY; J3475; J3480; J7512